=== PATIENT | male | born 1965 | race Caucasian/White ===

== ENCOUNTER 2020-08-07 13:29 | Outpatient (REF) | payer OTHER, SELFPAY ==
[2020-08-07 16:34] LABS: MANUAL DIFF FLAG NO
[2020-08-07 16:39] LABS: Basophils Percent Auto 0.7 % (0-2); Eosinophils Absolute Auto 0.1 X10*3/uL (0.0-0.4); Eosinophils Percent Auto 2.2 % (0-4); Hematocrit 42.7 % (42-52); Hemoglobin 14.5 g/dl (14.0-18.0); Imm Gran Abs Auto 0.01 X10*3/uL (0.00-0.03); Imm Gran Pct Auto 0.2 % (0.0-0.4); Lymphocytes Absolute Auto 1.3 X10*3/uL (1.2-4.9); Lymphocytes Percent Auto 28.4 % (20-40); Mean Corpuscular Hemoglobin 29.7 pg (27.0-33.0); Mean Corpuscular Volume 87.5 fL (80-98); Mean Platelet Volume 11.1 fL (9.4-12.4); Monocytes Absolute Auto 0.5 X10*3/uL (0.1-1.2); Monocytes Percent Auto 10.7 % (2-11); Neutrophils Absolute Auto 2.6 X10*3/uL (2.0-8.3); Neutrophils Percent Auto 57.8 % (45-73); Platelet Count 224 X10*3/uL (160-400); Red Blood Count 4.88 X10*6/uL (4.60-5.80); Red Cell Distribution Width 12.3 % (11.0-16.0); White Blood Count 4.5 X10*3/uL (4.8-10.8)
[2020-08-07 16:50] LABS: Glucose Urine UA NEG (NEG); Leukocyte Esterase Urine NEG (NEG); Nitrite Urine NEG (NEG); PH 6.5 (5.0-8.0); Specific Gravity - Urine 1.015 (1.005-1.025); Urine Blood TRACE (NEG); Urine Ketones NEG (NEG); Urine Protein NEG (NEG-TRACE)
[2020-08-07 16:54] LABS: Alanine Aminotransferase 20 U/L (0-40); Alkaline Phosphatase 62 U/L (39-117); Anion Gap 12 (12-20); Aspartate Amino Transferase 15 U/L (5-37); Bilirubin Total 1.3 mg/dL (0.0-1.0); Blood Urea Nitrogen 18 mg/dL (9-16); Calcium 8.7 mg/dL (8.4-10.2); Carbon Dioxide 28 mmol/L (22-29); Chloride 102 mmol/L (96-108); Cholesterol 204 mg/dL; Estimated Glomerular Filt Rate > 60; Glucose Fasting 80 mg/dL (60-99); HDL Cholesterol 42 mg/dL; LDL Cholesterol Calculated 143 mg/dl; Sodium 138 mmol/L (135-145); Total Protein 6.9 g/dL (6.5-8.0); Triglycerides 95 mg/dL
[2020-08-07 16:57] LABS: Appearance Urine CLEAR; Color Urine YELLOW
[2020-08-07 17:08] LABS: WBC Urine 0 /HPF (0-4)
[2020-08-07 17:15] LABS: Thyroid Stimulating Hormone 0.71 uIU/mL (0.32-4.0)
[2020-08-09 10:37] LABS: Calcium (PTHI) 8.7 mg/dL (8.6-10.3); PTHI 65 pg/mL (14-64)
== END 2020-08-07 13:30 | disposition home or self-care (01) ==
LOC: HO.HMGCLDS 13:29
PROVIDERS: PCP Internal Medicine; Visit Provider Internal Medicine
DX: I10 Essential (primary) hypertension (principal); E78.00 Pure hypercholesterolemia, unspecified; E89.2 Postprocedural hypoparathyroidism; Z12.5 Encounter for screening for malignant neoplasm of prostate
CPT/HCPCS: 36415; 80053; 80061; 81001; 82306; 83970; 84153; 84443; 85025

== ENCOUNTER 2021-01-22 10:44 | Outpatient (REF) | payer OTHER, SELFPAY ==
[2021-01-22 13:43] LABS: MANUAL DIFF FLAG NO
[2021-01-22 13:53] LABS: Basophils Percent Auto 0.8 % (0-2); Eosinophils Absolute Auto 0.1 X10*3/uL (0.0-0.4); Eosinophils Percent Auto 1.9 % (0-4); Hematocrit 45.2 % (42-52); Hemoglobin 15.4 g/dl (14.0-18.0); Imm Gran Abs Auto 0.01 X10*3/uL (0.00-0.03); Imm Gran Pct Auto 0.2 % (0.0-0.4); Lymphocytes Absolute Auto 1.1 X10*3/uL (1.2-4.9); Lymphocytes Percent Auto 22.6 % (20-40); Mean Corpuscular HGB Conc 34.1 g/dl (31.0-36.0); Mean Corpuscular Hemoglobin 29.4 pg (27.0-33.0); Mean Corpuscular Volume 86.4 fL (80-98); Mean Platelet Volume 10.6 fL (9.4-12.4); Monocytes Absolute Auto 0.5 X10*3/uL (0.1-1.2); Monocytes Percent Auto 11.1 % (2-11); Neutrophils Absolute Auto 3.1 X10*3/uL (2.0-8.3); Neutrophils Percent Auto 63.4 % (45-73); Platelet Count 232 X10*3/uL (160-400); Red Blood Count 5.23 X10*6/uL (4.60-5.80); Red Cell Distribution Width 12.1 % (11.0-16.0); White Blood Count 4.9 X10*3/uL (4.8-10.8)
[2021-01-22 14:37] LABS: Alanine Aminotransferase 22 U/L (0-40); Albumin Level 4.5 g/dL (3.5-5.0); Alkaline Phosphatase 65 U/L (39-117); Anion Gap 13 (12-20); Aspartate Amino Transferase 16 U/L (5-37); Bilirubin Total 1.5 mg/dL (0.0-1.0); Blood Urea Nitrogen 20 mg/dL (9-16); Calcium 9.7 mg/dL (8.4-10.2); Carbon Dioxide 28 mmol/L (22-29); Chloride 101 mmol/L (96-108); Estimated Glomerular Filt Rate > 60; Glucose Random 102 mg/dL (60-115); Potassium 3.7 mmol/L (3.3-5.1); Sodium 138 mmol/L (135-145); Total Protein 7.6 g/dL (6.5-8.0)
[2021-01-22 14:44] LABS: TSH reflex Free T4 0.83 uIU/mL (0.32-4.0)
[2021-01-24 17:51] LABS: Calcium (PTHI) 9.7 mg/dL (8.6-10.3); PTHI 48 pg/mL (14-64)
== END 2021-01-22 10:45 | disposition home or self-care (01) ==
LOC: HO.HMGCLDS 10:44
PROVIDERS: PCP Internal Medicine; Visit Provider Internal Medicine
DX: Z00.00 Encounter for general adult medical examination without abnormal findings (principal); F32.2 Major depressive disorder, single episode, severe without psychotic features; F41.1 Generalized anxiety disorder; I10 Essential (primary) hypertension; E78.00 Pure hypercholesterolemia, unspecified; E89.2 Postprocedural hypoparathyroidism
CPT/HCPCS: 36415; 80053; 83970; 84443; 85025

== ENCOUNTER 2021-02-06 20:02 | Emergency (ER) | payer OTHER, SELFPAY ==
--- NOTE | ~2021-02-06 | CT_ITS ---
EXAMINATION: CT ANGIOGRAM OF THE CHEST WITH AND WITHOUT CONTRAST (CT PULMONARY ANGIOGRAM FOR PE) CLINICAL INFORMATION: Reason for Exam Left pleuritic chest pain, tachycardia, rule out DVT COMPARISON: None TECHNIQUE: Prior to contrast administration, noncontrast localization images were obtained. Subsequently, multidetector volumetric imaging was performed from the thoracic inlet to below the diaphragms following the administration of 80 mL Omnipaque 350 intravenous contrast. No contrast reaction reported Sagittal, coronal, and MIP oblique sagittal reformatted images were obtained on the CT workstation, uploaded to PACS, and reviewed. This CT examination was performed using dose optimization techniques as appropriate, variously including the following: *Automated exposure control *Adjustment of mA and/or kV according to patient size (this includes techniques or standardized protocols for targeted exams where dose is matched to indication/reason for exam; i.e. extremities or head) *Use of iterative reconstruction technique Total exam dose-length product 325 mGy-cm FINDINGS: QUALITY OF STUDY/CONTRAST BOLUS: Satisfactory. PULMONARY ARTERIES: No central or segmental pulmonary emboli. THORACIC AORTA: No aneurysm or dissection. LUNG: The central airways are patent. Patchy opacities are seen at both lower lungs involving the lower lobes, lingula, and right middle lobe. PLEURA: No pleural effusion or pneumothorax. MEDIASTINUM: Normal heart size. No pericardial effusion. No hilar or mediastinal lymphadenopathy. No evidence of septal bowing or right heart strain. CHEST WALL/AXILLA: No axillary or internal mammary lymphadenopathy. OSSEOUS STRUCTURES: No acute or suspicious osseous abnormality. Mild degenerative changes in the spine. UPPER ABDOMEN: Unremarkable. No reflux of contrast into the hepatic veins to suggest elevated right heart pressures. CT/CT angio chest PE protocol IMPRESSION: No pulmonary embolism. Patchy bilateral airspace opacities at the lower lungs could be infectious or inflammatory. Atelectasis possible. VTE: negative
--- NOTE | ~2021-02-06 | XR_ITS ---
EXAMINATION: PORTABLE CHEST 1 VIEW CLINICAL INFORMATION: CP . COMPARISON: No recent pertinent prior studies are available for comparison. TECHNIQUE: Portable frontal view of the chest was obtained. FINDINGS: Lungs are hypoexpanded with linear bibasilar markings more likely due to atelectasis. No overt edema or pneumothorax. Tiny right effusion cannot be excluded. Cardiac silhouette within normal limits for size. No acute bony abnormality. XR/XR chest 1V IMPRESSION: Hypoexpanded with linear basilar markings more likely due to atelectasis
[2021-02-06 20:32] VITALS: BP 145/94; PULSE 119; RESP 18; TEMP 37.2; O2SAT 92; BMI 30.7
--- NOTE | 2021-02-06 20:37 | ECG_ITS ---
Test Reason : CHEST PAIN Blood Pressure : / mmHG Vent. Rate : 112 BPM Atrial Rate : 112 BPM P-R Int : 126 ms QRS Dur : 092 ms QT Int : 342 ms P-R-T Axes : 028 -23 028 degrees QTc Int : 466 ms Sinus tachycardia Possible Left atrial enlargement Left ventricular hypertrophy Abnormal ECG No previous ECGs available Referred By: Generic ED Physician Electronically Signed By:RENITA OROZCO
[2021-02-06 21:04] LABS: MANUAL DIFF FLAG NO
[2021-02-06 21:06] LABS: Basophils Percent Auto 0.3 % (0-2); Eosinophils Absolute Auto 0.1 X10*3/uL (0.0-0.4); Eosinophils Percent Auto 0.6 % (0-4); Hematocrit 43.4 % (42-52); Hemoglobin 15.7 g/dl (14.0-18.0); Imm Gran Abs Auto 0.03 X10*3/uL (0.00-0.03); Imm Gran Pct Auto 0.3 % (0.0-0.4); Lymphocytes Absolute Auto 1.5 X10*3/uL (1.2-4.9); Lymphocytes Percent Auto 13.8 % (20-40); Mean Corpuscular HGB Conc 36.2 g/dl (31.0-36.0); Mean Corpuscular Hemoglobin 30.4 pg (27.0-33.0); Mean Corpuscular Volume 84.1 fL (80-98); Mean Platelet Volume 10.7 fL (9.4-12.4); Monocytes Absolute Auto 1.2 X10*3/uL (0.1-1.2); Monocytes Percent Auto 11.6 % (2-11); Neutrophils Absolute Auto 7.8 X10*3/uL (2.0-8.3); Neutrophils Percent Auto 73.4 % (45-73); Platelet Count 204 X10*3/uL (160-400); Red Blood Count 5.16 X10*6/uL (4.60-5.80); Red Cell Distribution Width 12.1 % (11.0-16.0); White Blood Count 10.6 X10*3/uL (4.8-10.8)
[2021-02-06 21:11] LABS: Prothrombin Time 11.2 SEC (9.9-13.0)
[2021-02-06 21:41] LABS: Anion Gap 16 (12-20); Blood Urea Nitrogen 21 mg/dL (9-16); Calcium 9.7 mg/dL (8.4-10.2); Carbon Dioxide 24 mmol/L (22-29); Chloride 100 mmol/L (96-108); Creatinine Clr Calc Pharmacy 81.7; Estimated Glomerular Filt Rate > 60; Glucose Random 105 mg/dL (60-115); Potassium 3.4 mmol/L (3.3-5.1); Sodium 137 mmol/L (135-145)
[2021-02-06 21:47] LABS: Troponin-I High Sensitivity 13.3 ng/L (<3.5-35.0)
[2021-02-06 22:00] VITALS: BP 147/92; PULSE 108; RESP 20; O2SAT 92
[2021-02-07 00:42] LABS: COVID-19 Test Negative (Negative)
--- NOTE | 2021-02-07 01:38 | ED_ITS ---
HPI - Chest Pain General Chief Complaint: Chest Pain Stated Complaint: cp Time Seen by Provider: 02/07/21 01:15 Source: patient Mode of arrival: ambulatory Limitations: no limitations History of Present Illness HPI narrative: 55-year-old man who presents emergency department for evaluation of left-sided pleuritic chest pain shortness of breath and dyspnea on exertion. Patient states that yesterday at around 4:00 p.m. had a sudden onset of left- sided chest pain. He states that there is a constant dull pain but there is a sharp pain which is worse with breathing. The dull pain is 5/10 sharp pain is 9/10. Patient states that he is feeling short of breath and has dyspnea on exertion. States that he has the symptoms all the time but they are worse in the last 2 days. He states that today he began to develop left shoulder pain which is constant, dull and mild to moderate intensity. He also states that he is feeling lightheaded and dizzy. Patient states that he has chronic fatigue and is always tired and this is unchanged from his baseline. Patient denies any pain or swelling in his lower extremities. He denies any recent travel. He does not think that there is any family history of blood clots. He did not take any medications at home for the pain. Related Data Previous Rx's Medication Instructions Recorded azithromycin 250 mg tablet See Rx Instructions .ROUTE 02/07/21 (Zithromax Z-Jonathon) .COMPLEX #6 tab cefuroxime axetil 500 mg tablet 500 mg PO Q12H 10 Days #20 tab 02/07/21 Allergies Allergy/AdvReac Type Severity Reaction Status Date / Time No Known Allergies Allergy Verified 02/06/21 20:37 Review of Systems Review of Systems: Yes all other systems are reviewed and are negative [facility] Past Medical History [facility] Narrative: Past medical history: Hypertension. Past surgical history: None. Social history: Patient denies tobacco use. He states that he drinks 10 beers per week. Denies drug use. Medical History (Updated 02/07/21 @ 04:40 by Wally Rios MD) Hypertension Social History Social History Advance Directives: No Advance Directives Information Provided: No Physical Exam Vital Signs: Vital Signs: Last Vital Signs Temp 98.8 F 02/07/21 02:00 Pulse 90 02/07/21 03:26 Resp 20 02/07/21 03:26 BP 125/78 02/07/21 03:26 Pulse Ox 93 02/07/21 03:26 Body Mass Index 30.7 Const: General: cooperative and no acute distress Orientation/conscio usness: oriented to person and oriented to place Limitations: no limitations HENMT: Head: Yes normal to inspection, Yes normocephalic and Yes atraumatic Ears: external ears normal General nose exam: Normal external nose present Face and sinus: Yes normal facial exam Mouth: Normal oral and palatal mucosa present Throat: Yes posterior oropharynx normal Eyes: General: appearance normal, both eyes and all related structures Pupils: Equal, round and reactive pupils present Neck: Neck: Yes normal visual inspection, Yes no lymphadenopathy, Yes trachea midline and Yes supple Chest: Chest palpation & inspection: normal inspection of the chest and tenderness ([id number], left lateral chest, no lesions noted in this area) Resp: Effort & Inspection: normal respiratory effort and able to speak in complete sentences Auscultation: clear to auscultation bilaterally Cardio: Rate: regular rate Rhythm: regular rhythm Heart sounds: S1 normal heart sound present, S2 normal heart sound present and Murmur heart sound present systolic III/ and at the left sternal border GI: Inspection: Yes normal to inspection Palpation (GI): Soft to palpation, nontender and no guarding Auscultation: normal bowel sounds : General: Yes no CVA tenderness Back/Spine/Pelvis: Back: no CVA tenderness Skin: General skin exam: no rashes or lesions noted Neuro: General: oriented to person and oriented to place Cranial nerves: Yes CN's II-XII intact bilaterally and Yes Equal, round and reactive pupils present Cognition (Neuro): normal cognition Motor exam (neuro): 5/5 motor strength present throughout Extrem: General: Yes normal to inspection Psych: Appearance: grossly normal Speech and movement: Normal speech and movement present Affect: normal affect Attitude: cooperative Thought process: Normal thought process present Thought content: Normal thought co ntent present Course Course Course Narrative: 55-year-old male who presents emergency department for evaluation of sudden onset of left-sided pleuritic chest pain that occurred yesterday at 4:00 p.m.. The pain is been constant and he states that today at around 3:00 p.m. he developed left shoulder pain. He is also complaining of shortness of breath and dyspnea on exertion which is above his baseline. The patient has no significant risk factors for pulmonary embolism. Vital signs revealed tachycardia with a pulse of 119, elevated blood pressure of 149/94, O2 saturation was slightly low at 92% on room air. His physical examination did reveal left-sided chest wall tenderness and a 3/6 systolic murmur best heard at the left sternal border which he was not aware of. The patient's laboratory evaluation did reveal detectable high sensitive troponin the 13.3. Twelve EKG revealed a sinus tachycardia. The patient will have a repeat troponin, , CT scan pulmonary angiogram PE protocol will be obtained as well. Patient's pain was treated with Toradol 30 mg IV. He is also given normal saline IV x1 L. 0427: The patient did not get any improvement with the Toradol therefore was given morphine 4 mg IV with improvement his pain. CT scan of the patient's chest pulmonary embolism protocol was interpreted by the radiologist as ?No pulmonary embolism.Patchy bilateral airspace opacities at the lower lungs could be infectious or inflammatory. Atelectasis possible . Repeat troponin was not significantly elevated at 17.6. The patient will be treated for possible pneumonia. He will be started on Zithromax Z-Jonathon and Ceftin. I did discuss these findings with the patient. The patient was discharged home. The patient was given verbal and printed instructions prior to discharge. The patient was advised to follow-up with his PCP in 2 days and to return to the emergency department if his symptoms get worse or if he develops any new symptoms that are concerning to him. ?Also, of note, the patient does have a heart murmur which I do not think is related to his symptoms. I told the patient that he is to follow-up with his PCP and get an echocardiogram as an outpatient may also need to follow-up with cardiology. MDM - Chest Pain Lab Data Result diagrams: 02/06/21 20:58 02/06/21 20:58 Labs: Lab Results 02/06/21 02/06/21 02/06/21 Range/Units 20:58 20:58 20:58 WBC 10.6 (4.8-10.8) X10*3/uL RBC 5.16 (4.60-5.80) X10*6/uL Hgb 15.7 (14.0-18.0) g/dl Hct 43.4 (42-52) % MCV 84.1 (80-98) fL MCH 30.4 (27.0-33.0) pg MCHC 36.2 H (31.0-36.0) g/dl RDW 12.1 (11.0-16.0) % Plt Count 204 (160-400) X10*3/uL MPV 10.7 (9.4-12.4) fL Immature Gran % (Auto) 0.3 (0.0-0.4) % Neut % (Auto) 73.4 H (45-73) % Lymph % (Auto) 13.8 L (20-40) % [place] % (Auto) 11.6 H (2-11) % Eos % (Auto) 0.6 (0-4) % Baso % (Auto) 0.3 (0-2) % Lymph # (Auto) 1.5 (1.2-4.9) X10*3/uL [place] # (Auto) 1.2 (0.1-1.2) X10*3/uL Eos # (Auto) 0.1 (0.0-0.4) X10*3/uL Baso # (Auto) 0.0 (0.0-0.2) X10*3/uL Abs Immat Gran (auto) 0.03 (0.00-0.03) X10*3/uL Absolute Neuts (auto) 7.8 (2.0-8.3) X10*3/uL Absolute Nucleated RBC 0.000 (0.0-0.012) X10*3/uL Nucleated RBC % (auto) 0.0 (0.0-0.2) /100WBC PT 11.2 (9.9-13.0) SEC INR 1.0 (0.9-1.1) APTT (24.1-38.0) SEC D-Dimer < 200 NG/ML Sodium 137 (135-145) mmol/L Potassium 3.4 (3.3-5.1) mmol/L Chloride 100 (96-108) mmol/L Carbon Dioxide 24 (22-29) mmol/L Anion Gap 16 (12-20) BUN 21 H (9-16) mg/dL Creatinine 1.03 (0.5-1.4) mg/dL Estim Creat Clear Calc 81.7 Estimated GFR > 60 Random Glucose 105 (60-115) mg/dL Calcium 9.7 (8.4-10.2) mg/dL Magnesium 2.0 (1.6-2.6) mg/dL Troponin I High Sens (<3.5-35.0) ng/L Urine Color Urine Appearance Urine pH (5.0-8.0) Ur Specific Curlew (1.005-1.025) Urine Protein (NEG-TRACE) MG/DL Urine Glucose (UA) (NEG) MG/DL Urine Ketones (NEG) MG/DL Urine Blood (NEG) Urine Nitrite (NEG) Ur Leukocyte Esterase (NEG) Urine RBC (0) /HPF Urine WBC (0-4) /HPF Ur Squamous Epith Cells /LPF Urine Bacteria /LPF Hyaline Casts /LPF Granular Casts /LPF Urine Mucus /LPF COVID-19 (AMBIKA) (Negative) COVID-19 Clin Com 02/06/21 02/07/21 02/07/21 Range/Units 20:58 00:24 02:17 WBC (4.8-10.8) X10*3/uL RBC (4.60-5.80) X10*6/uL Hgb (14.0-18.0) g/dl Hct (42-52) % MCV (80-98) fL MCH (27.0-33.0) pg MCHC (31.0-36.0) g/dl RDW (11.0-16.0) % Plt Count (160-400) X10*3/uL MPV (9.4-12.4) fL Immature Gran % (Auto) (0.0-0.4) % Neut % (Auto) (45-73) % Lymph % (Auto) (20-40) % [place] % (Auto) (2-11) % Eos % (Auto) (0-4) % Baso % (Auto) (0-2) % Lymph # (Auto) (1.2-4.9) X10*3/uL [place] # (Auto) (0.1-1.2) X10*3/uL Eos # (Auto) (0.0-0.4) X10*3/uL Baso # (Auto) (0.0-0.2) X10*3/uL Abs Immat Gran (auto) (0.00-0.03) X10*3/uL Absolute Neuts (auto) (2.0-8.3) X10*3/uL Absolute Nucleated RBC (0.0-0.012) X10*3/uL Nucleated RBC % (auto) (0.0-0.2) /100WBC PT (9.9-13.0) SEC INR (0.9-1.1) APTT (24.1-38.0) SEC D-Dimer NG/ML Sodium (135-145) mmol/L Potassium (3.3-5.1) mmol/L Chloride (96-108) mmol/L Carbon Dioxide (22-29) mmol/L Anion Gap (12-20) BUN (9-16) mg/dL Creatinine (0.5-1.4) mg/dL Estim Creat Clear Calc Estimated GFR Random Glucose (60-115) mg/dL Calcium (8.4-10.2) mg/dL Magnesium (1.6-2.6) mg/dL Troponin I High Sens 13.3 17.6 (<3.5-35.0) ng/L Urine Color Urine Appearance Urine pH (5.0-8.0) Ur Specific [place]lew (1.005-1.025) Urine Protein (NEG-TRACE) MG/DL Urine Glucose (UA) (NEG) MG/DL Urine Ketones (NEG) MG/DL Urine Blood (NEG) Urine Nitrite (NEG) Ur Leukocyte Esterase (NEG) Urine RBC (0) /HPF Urine WBC (0-4) /HPF Ur Squamous Epith Cells /LPF Urine Bacteria /LPF Hyaline Casts /LPF Granular Casts /LPF Urine Mucus /LPF COVID-19 (AMBIKA) Negative (Negative) COVID-19 Clin Com See Note 02/07/21 02/07/21 Range/Units 02:17 03:32 WBC (4.8-10.8) X10*3/uL RBC (4.60-5.80) X10*6/uL Hgb (14.0-18.0) g/dl Hct (42-52) % MCV (80-98) fL MCH (27.0-33.0) pg MCHC (31.0-36.0) g/dl RDW (11.0-16.0) % Plt Count (160-400) X10*3/uL MPV (9.4-12.4) fL Immature Gran % (Auto) (0.0-0.4) % Neut % (Auto) (45-73) % Lymph % (Auto) (20-40) % [place] % (Auto) (2-11) % Eos % (Auto) (0-4) % Baso % (Auto) (0-2) % Lymph # (Auto) (1.2-4.9) X10*3/uL [place] # (Auto) (0.1-1.2) X10*3/uL Eos # (Auto) (0.0-0.4) X10*3/uL Baso # (Auto) (0.0-0.2) X10*3/uL Abs Immat Gran (auto) (0.00-0.03) X10*3/uL Absolute Neuts (auto) (2.0-8.3) X10*3/uL Absolute Nucleated RBC (0.0-0.012) X10*3/uL Nucleated RBC % (auto) (0.0-0.2) /100WBC PT 11.8 (9.9-13.0) SEC INR 1.0 (0.9-1.1) APTT 35.1 (24.1-38.0) SEC D-Dimer NG/ML Sodium (135-145) mmol/L Potassium (3.3-5.1) mmol/L Chloride (96-108) mmol/L Carbon Dioxide (22-29) mmol/L Anion Gap (12-20) BUN (9-16) mg/dL Creatinine (0.5-1.4) mg/dL Estim Creat Clear Calc Estimated GFR Random Glucose (60-115) mg/dL Calcium (8.4-10.2) mg/dL Magnesium (1.6-2.6) mg/dL Troponin I High Sens (<3.5-35.0) ng/L Urine Color YELLOW Urine Appearance HAZY Urine pH 6.0 (5.0-8.0) Ur Specific [place] >= 1.030 H (1.005-1.025) Urine Protein NEG (NEG-TRACE) MG/DL Urine Glucose (UA) NEG (NEG) MG/DL Urine Ketones NEG (NEG) MG/DL Urine Blood 3+ H (NEG) Urine Nitrite NEG (NEG) Ur Leukocyte Esterase NEG (NEG) Urine RBC 10-14 H (0) /HPF Urine WBC 1-4 (0-4) /HPF Ur Squamous Epith Cells 1+ /LPF Urine Bacteria 2+ /LPF Hyaline Casts 0-2 /LPF Granular Casts 0-2 /LPF Urine Mucus 2+ /LPF COVID-19 (AMBIKA) (Negative) COVID-19 Clin Com Discharge Plan Discharge Clinical Impression: Pleuritic chest pain, Pneumonia, Heart murmur Patient Disposition: Home, Self-Care Instructions: Pneumonia (ED), Heart Murmur (ED) Additional Instructions: Your chest x-ray was unremarkable however the CT scan of your chest revealed bilateral lower lobe pneumonia. There was no evidence for a blood clot in your lungs which is reassuring. Pneumonia can cause pleuritic chest pain which is pain that is worse with breathing. I am starting you on 2 antibiotics. Take Zithromax Z-Jonathon as prescribed. Take your next dose tomorrow morning since you are given a dose this morning in the emergency department. Take Ceftin (cefuroxime) 500 mg pills, 1 pill twice a day for 7 days. Take your next dose tomorrow morning since your given your 1st dose here in the emergency department. Take ibuprofen 200 mg pills, 3 pills every 6 hours as needed for pain. Take Tylenol (acetaminophen) 500 mg pills, 2 pills every 4 to 6 hours as needed for pain. You have a heart murmur, I suspect that this may be related to your mitral valve but you need to get an echocardiogram as an outpatient to determine the significance of this heart murmur. Follow-up with your doctor in 2 days. Please return to the emergency department if your symptoms get worse or if you develop any symptoms that are concerning to you. Prescriptions: New azithromycin [Zithromax Z-Jonathon] 250 mg tablet See Rx Instructions .ROUTE .COMPLEX Qty: 6 RF: 0 cefuroxime axetil 500 mg tablet 500 mg PO Q12H 10 Days Qty: 20 RF: 0 Stand Alone Forms: Work/School Release
[2021-02-07 01:46] LABS: D Dimer < 200 NG/ML
[2021-02-07 02:00] VITALS: BP 131/84; PULSE 112; RESP 20; TEMP 37.1; O2SAT 94
[2021-02-07] MEDS: Ketorolac Tromethamine 15 MG/ML VIAL 30 MG IVPUSH (02:25)
[2021-02-07] MEDS: 0.9 % Sodium Chloride 1,000 ML 999 ML IV (02:26)
[2021-02-07 02:34] LABS: Partial Thromboplastin Time 35.1 SEC (24.1-38.0)
[2021-02-07 02:48] LABS: Troponin-I High Sensitivity 17.6 ng/L (<3.5-35.0)
[2021-02-07 02:50] VITALS: RESP 22
[2021-02-07] MEDS: Morphine Sulfate 4 MG/ML CARTRIDGE IVPUSH (02:50)
[2021-02-07] MEDS: ondansetron HCL 4 MG/2 ML VIAL IVPUSH (02:50)
--- NOTE | 2021-02-07 03:05 | PC.NURSE ---
Pt aaox4, resting in recliner chair in NAD at this time, RR even and unlabored on RA. Pt's VSS; pt is slightly tachycardiac at 103 at this time. Pt denies pain at this time, reports that stuff is amazing referencing morphine. Pt states I could get up and go running, I feel great. I guess I'm good to go home now. This RN explains to pt that he is not able to go home at this time because the ED provider is awaiting test results in attempts to identify the cause of pt's pain. Pt expresses understanding. Pt offers no questions. Pt to ED CT at this time.
[2021-02-07] MEDS: iohexoL 350 MG/ML 100 ML INFUS..BTL 65 ML IV (03:23)
[2021-02-07 03:26] VITALS: BP 125/78; PULSE 90; RESP 20; O2SAT 93
[2021-02-07 03:38] LABS: Glucose Urine UA NEG (NEG); Leukocyte Esterase Urine NEG (NEG); Nitrite Urine NEG (NEG); Specific Gravity - Urine >= 1.030 (1.005-1.025); UACC Culture Trigger NO; Urine Blood 3+ (NEG); Urine Ketones NEG (NEG); Urine Protein NEG (NEG-TRACE)
[2021-02-07 03:39] LABS: Prothrombin Time 11.8 SEC (9.9-13.0)
[2021-02-07 03:44] LABS: Appearance Urine HAZY; Color Urine YELLOW
[2021-02-07 03:45] LABS: Bacteria Urine 2+ /LPF; Granular Casts Urine 0-2 /LPF; Hyaline Casts Urine 0-2 /LPF; Mucus Urine 2+ /LPF; Squamous Epithelial Cell Urine 1+ /LPF
[2021-02-07] MEDS: Azithromycin 500 MG TABLET PO (04:46)
== END 2021-02-07 05:09 | disposition home or self-care (01) ==
PROVIDERS: Emergency Provider Emergency Medicine Emergency Medical Services; PCP Internal Medicine
DX: R07.89 Other chest pain (principal); J18.9 Pneumonia, unspecified organism; R01.1 Cardiac murmur, unspecified; R00.0 Tachycardia, unspecified; I10 Essential (primary) hypertension; R06.02 Shortness of breath; Z20.822 Contact with and (suspected) exposure to COVID-19
CPT/HCPCS: 36415; 71045; 71275; 80048; 81001; 83735; 84484; 85025; 85379; 85610; 85730; 87635; 93005; 96361; 96374; 96375; 99284; J1885; J2270; J2405; Q9967

== ENCOUNTER → 2021-03-19 07:26 | Outpatient (REF) | payer OTHER, SELFPAY ==
--- NOTE | 2021-03-19 07:32 | CA_ITS ---
Transthoracic Echocardiogram Patient (Last, First, Middle): Ronen Evans D Gender: Male Date of : 1965 Age: 55 Procedure Date: 03/19/2021 Procedure Type: Transthoracic Echocardiogram Location: OP Height: 165.1 cm Weight: 84.82 kg BSA: 1.92 m2 Heart Rate: bpm BP: 126 / 92 mmHg Ab Initio Etl Developer: BRUNO Brown MD: Corona Breen MD DO Symptoms: SYSTOLIC MURMUR Study Quality: Good ECG Rhythm: Sinus bradycardia Conclusions: - The left ventricular systolic function is normal. The visually estimated ejection fraction is between 65-70%. - There is mild calcification of the aortic valve. - No obvious valvular pathology seen on this study. Findings Left Ventricle Normal left ventricular cavity size. There is mildly increased left ventricular wall thickness. The left ventricular systolic function is normal. The visually estimated ejection fraction is between 65-70%. There is no evidence of regional wall motion abnormalities. LV peak GLS -16% (normal). Right Ventricle Normal right ventricular cavity size and systolic function. Atria Both atria are normal in size. Aortic Valve There is a normal trileaflet aortic valve. There is mild calcification of the aortic valve. There is no aortic valve stenosis. There is no aortic valve regurgitation. Mitral Valve The mitral valve appears normal. There is trace mitral valve regurgitation. There is no mitral valve stenosis. Pulmonic Valve The pulmonic valve was not well visualized. Tricuspid Valve Normal tricuspid valve structure. There is trace tricuspid valve regurgitation. The pulmonary artery systolic pressure is normal. Great Vessels The aortic annulus, sinuses of valsalva, and asc aorta are normal in size. Venous The inferior vena cava is normal in size and collapses greater than 50% with inspiration. Pericardium/Pleural There is no evidence of pericardial effusion. Prior Study Comparison No prior study available for comparison. Recommendations, Care & Conclusions No obvious valvular pathology seen on this study. Measurements 2D Linear Measurements IVSd: 1.17 0.6-0.9/0.6-1.0 cm LVIDd: 4.11 3.9-5.3/4.2-5.9 cm LVIDd Index: 2.14 2.4-3.2/2.2-3.1 cm/m2 LVIDs: 2.72 2.0-3.6 cm LVPWd: 1.10 0.7-1.1 cm Ao Root: 3.70 2.1-3.5 cm LA Diam: 4.10 2.7-3.8/3.0-4.0 cm LAIDs Index: 2.14 1.5-2.3 cm/m2 LV Mass: 197.88 67-162/88-224 g LV Mass Index: 103.06 43-95/49-115 g/m2 LVOT Diam: 2.20 3.0+(-)1.3 cm 2D Systolic Function EF 4C: 57.40 >55% EF 2C: 61.20 >55% EF BiP: 60.20 >55% Mitral Valve MV Pk E: 0.71 MV PK A: 0.69 MV Decel Time: 392.00 E/A: 1.00 E'Lateral: 7.18 E'Medial: 6.64 E/E' Med: 10.60 E/E' Lat: 9.80 PHT: 115.00 MVA PHT: 1.91 Decel Custer: 1.80 Aortic Valve AoV Pk Joseph: 1.48 AoV Mn Joseph: 1.14 AoV VTI: 0.33 AoV Pk Grad: 9.00 Aov Mn Grad: 6.00 LORI Cont.VTI: 4.01 LVOT LVOT Pk Joseph: 1.55 LVOT Mn Joseph: 1.16 LVOT VTI: 0.35 LVOT Pk Grad: 10.00 LVOT Mn Grad: 6.00 LVOT Diam: 2.20 LVOT Area: 3.80 Diastolic Function MV Pk E: 0.71 MV Pk A: 0.69 E/A: 1.00 E'Medial: 6.64 E/E' Med: 10.60 E' Laterial: 7.18 E/E' Lat: 9.80 Right Ventricle TAPSE (mm): 2.22 TVS' Joseph: 13.20 Tricuspid Valve TR Pk Joseph: 2.01 TR Pk Grad: 16.00 RA Press: 3.00 RVSP: 19.00 Great Vessels Aorta Ao Root-2D: 3.70 2.0-3.7 cm Ao Asc: 3.40 2.1-3.4 cm Ao Arch: 2.90 Updated in Other Vendor System with Status of Final Douglas Turner MD electronically signed on 03/19/2021 12:32:07 PM with status of Final
== END ==
LOC: HO.CARD 07:26
PROVIDERS: Visit Provider Internal Medicine
DX: R01.1 Cardiac murmur, unspecified (principal)
CPT/HCPCS: 93306; 93356

== ENCOUNTER 2022-03-31 16:36 | Emergency (ER) | payer OTHER, SELFPAY ==
--- NOTE | ~2022-03-31 | XR_ITS ---
EXAMINATION: XR HAND, LEFT CLINICAL INFORMATION: Laceration COMPARISON: None TECHNIQUE: PA, lateral, and oblique views of the left hand. FINDINGS: Soft tissue disruption in the distal third digit. No underlying fracture or bony violation. XR/XR hand LT 2V IMPRESSION: Soft tissue disruption distal third digit. No underlying bony finding.
[2022-03-31 16:41] VITALS: BP 161/98; PULSE 90; RESP 20; TEMP 37.1; O2SAT 98; BMI 30.7
--- NOTE | 2022-03-31 21:39 | ED.WOUNDLAC ---
HPI - Wound/Laceration General Chief Complaint: Wound/Laceration Stated Complaint: middle finger lac. Time Seen by Provider: 03/31/22 21:36 Source: patient Mode of arrival: ambulatory Limitations: no limitations History of Present Illness HPI narrative: 56-year-old male presents for evaluation of lacerations to the 3rd and 4th finger tips of the left hand. Does fingers stuck in a trimmer climber. He applied a dressing however the bleeding has not stopped. He believes his tetanus vaccine is up-to-date. Onset (ago): hour(s) (Within the hour of arrival) Extremity Location: left: hand (Third and 4th finger tips) Place: home Patient tetanus UTD: No Context: accidental Associated symptoms: pain Treatments prior to arrival: bandage Related Data Previous Rx's Medication Instructions Recorded azithromycin 250 mg tablet See Rx Instructions PO .COMPLEX #6 02/07/21 (Zithromax Z-Jonathon) tabs cefuroxime axetil 500 mg tablet 500 mg PO Q12H 10 days #20 tabs 02/07/21 amoxicillin 875 mg-potassium 1 tab PO Q12H 10 days #20 tabs 03/31/22 clavulanate 125 mg tablet Allergies Allergy/AdvReac Type Severity Reaction Status Date / Time No Known Allergies Allergy Verified 02/06/21 20:37 Review of Systems Review of Systems: Constitutional: No Fever, No Chills ENT/Mouth: No Ear Pain, No Hoarseness, No sore throat Eyes: No Eye Pain, No Swelling, No Redness, No Foreign Body Cardiovascular: No Chest Pain, No SOB Respiratory: No Cough, No Dyspnea Gastrointestinal: No Nausea, No Vomiting, No Diarrhea, No abdominal Pain Genitourinary: No Dysuria, No Hematuria Musculoskeletal: positive left 3rd and 4th finger pain, No Myalgias, No Joint Swelling Skin: 3rd and 4th finger tip lacerations, No rash Neuro: No Weakness, No Numbness, No Paresthesias, No Loss of Consciousness, No Dizziness, No Headache Psych: No Anxiety/Panic, No Depression Heme/Lymph: no easy bruising, no Lymphadenopathy Endocrine: No Polyuria, No Polydipsia Yes all other systems are reviewed and are negative PMFSH Past Medical History Attestation statement: The following information was validated with the patient. Source: old records reviewed Medical History Hypertension Social History Social History Advance Directives: No Advance Directives Information Provided: No Physical Exam Vital Signs: Vital Signs: Last Vital Signs Temp 98.7 F 03/31/22 16:41 Pulse 90 03/31/22 16:41 Resp 20 03/31/22 16:41 BP 161/98 H 03/31/22 16:41 Pulse Ox 98 03/31/22 16:41 O2 Del Method 03/31/22 16:41 BMI result Body Mass Index 30.7 Appearance: Alert. Oriented X3. No acute distress. Eyes: Pupils equal, round and reactive to light. ENT: Pharynx normal. Neck: Normal inspection. Neck supple. CVS: Normal heart rate and rhythm. Pulses normal. Respiratory: No respiratory distress. Breath sounds normal. Abdomen: Soft and nontender. Skin: Skin warm and dry. Normal skin color. Normal skin turgor. Extremities: 3rd and 4th finger tip lacerations. Brisk capillary refill, equal pulses. Neurovascularly intact. No tendon deficit. Full flexion extension of all digits. Neuro: No motor deficit. No sensory deficit. Cranial nerves 2-12 intact. Course Course Course Narrative: 56-year-old male presents for lacerations of the 4th and 3rd fingers of the left hand. Patient has full range of motion, brisk capillary refill, no indication of tendon deficit. X-rays do not indicate any bone involvement. Plan of care is to repair lacerations Prepped and draped in sterile fashion. Irrigated with copious amounts of sterile saline and hydrogen peroxide. Betadine cleanse Please refer to procedure note for full details. 23:12 patient continues with brisk capillary refill, full range of motion, no indication of tendon deficit. Patient does understand that he must follow-up with the hand surgeon. Will give antibiotics, and have patient take Tylenol Motrin as needed for pain management. Patient does understand indications of infection. Patient verbalized understanding of and agrees to plan of care discharge home. MDM - Wound/Laceration Differential Diagnosis Differential diagnosis: Likely laceration Medical Records Attestation: I reviewed the patient's medical records. Imaging Data Finger x-ray: Attestation: I personally reviewed and interpreted this imaging study as follows: Radiologist's impression: EXAMINATION: XR HAND, LEFT CLINICAL INFORMATION: Laceration? COMPARISON: None? TECHNIQUE: PA, lateral, and oblique views of the left hand. FINDINGS: Soft tissue disruption in the distal third digit. No underlying fracture or bony violation.? XR/XR hand LT 2V IMPRESSION: Soft tissue disruption distal third digit. No underlying bony finding. Procedures Laceration Laceration 1: Site: hand Side (If applicable): left (Third finger tip) Size (cm): 2 Description: linear, flap and irregular Depth: involves muscle layer Local Anesthetic: lidocaine 2% Amount of anesthesia used (mL): 2 Pre-repair: wound explored and irrigated extensively Skin layer closed with: nylon Size (cm): 4-0 Number of sutures: 15 Technique: simple, interrupted Laceration 2: Site: hand Side (If applicable): left (Fourth finger tip) Size (cm): 1 Description: linear Depth: simple, single layer Local Anesthetic: lidocaine 2% Amount of anesthesia used (mL): 2 Pre-repair: wound explored, irrigated extensively and deep structures intact Skin layer closed with: nylon Size (cm): 4-0 Number of sutures: 6 Technique: simple, interrupted Discharge Plan Discharge Clinical Impression: Laceration Patient Disposition: Home, Self-Care Instructions: Care For Your Stitches (ED), Finger Laceration (ED) Additional Instructions: You were evaluated for lacerations caused by a trimmer climber. You must follow-up with a hand surgeon. Please follow up with Mariann Anderson. Call and make an appointment. Take Augmentin 875 mg twice a day for the next 10 days. Your sutures should be removed in 10-14 days. Please return for wound check in 3 days. If you notice any signs or symptoms indicating infection please return immediately. Keep splint in place to reduce injury. Thank you for choosing this emergency department for evaluation. Please follow-up with primary care physician as needed. Return to the emergency department for any new, concerning, or worsening symptoms. Prescriptions: New amoxicillin-pot clavulanate 875-125 mg tablet 1 tab PO Q12H 10 Days Qty: 20 0RF No Action azithromycin [Zithromax Z-Jonathon] 250 mg tablet See Rx Instructions .ROUTE .COMPLEX Qty: 6 0RF Rx Instructions: take 500 mg today (day 1), then 250 mg for 4 days (days 2-5) cefuroxime axetil 500 mg tablet 500 mg PO Q12H 10 Days Qty: 20 0RF Referrals: Mariann Manrique MD [Physician] - 2 days (Third and 4th finger tip lacerations) Stand Alone Forms: Work/School Release
[2022-03-31] MEDS: Diphth,Pertus(ACell),Tet Adult 0.5 ML SYRINGE IM (22:03)
[2022-03-31 23:35] VITALS: RESP 16; O2SAT 95
== END 2022-03-31 23:37 | disposition home or self-care (01) ==
PROVIDERS: Emergency Provider Emergency Medicine Emergency Medical Services; PCP Internal Medicine
DX: S61.213A Laceration without foreign body of left middle finger without damage to nail, initial encounter (principal); S61.215A Laceration without foreign body of left ring finger without damage to nail, initial encounter; S60.512A Abrasion of left hand, initial encounter; W29.3XXA Contact with powered garden and outdoor hand tools and machinery, initial encounter; Y93.9 Activity, unspecified; Y92.9 Unspecified place or not applicable; Y99.9 Unspecified external cause status; Z79.899 Other long term (current) drug therapy
CPT/HCPCS: 12042; 73120; 90471; 90715; 99283; 99284

== ENCOUNTER → 2022-04-08 11:11 | Outpatient (BNVA) | payer OTHER, SELFPAY | PROVIDERS: PCP Internal Medicine; Visit Provider Orthopaedic Surgery | DX: S61.213A Laceration without foreign body of left middle finger without damage to nail, initial encounter (principal); S61.215A Laceration without foreign body of left ring finger without damage to nail, initial encounter | CPT/HCPCS: 99202 ==

== ENCOUNTER 2022-04-09 09:37 | Outpatient (REF) | payer OTHER, SELFPAY ==
[2022-04-09 11:28] LABS: MANUAL DIFF FLAG NO
[2022-04-09 11:44] LABS: Basophils Absolute Auto 0.1 X10*3/uL (0.0-0.2); Basophils Percent Auto 1.3 % (0-2); Eosinophils Absolute Auto 0.2 X10*3/uL (0.0-0.4); Eosinophils Percent Auto 3.3 % (0-4); Hematocrit 41.9 % (42.0-52.0); Hemoglobin 14.5 g/dl (14.0-18.0); Imm Gran Abs Auto 0.01 X10*3/uL (0.00-0.03); Imm Gran Pct Auto 0.2 % (0.0-0.4); Lymphocytes Absolute Auto 1.3 X10*3/uL (1.2-4.9); Lymphocytes Percent Auto 29.1 % (20-40); Mean Corpuscular HGB Conc 34.6 g/dl (31.0-36.0); Mean Corpuscular Hemoglobin 29.9 pg (27.0-33.0); Mean Corpuscular Volume 86.4 fL (80.0-98.0); Mean Platelet Volume 10.8 fL (9.4-12.4); Monocytes Absolute Auto 0.5 X10*3/uL (0.1-1.2); Monocytes Percent Auto 10.9 % (2-11); Neutrophils Absolute Auto 2.5 x10*3/uL (2.0-8.3); Neutrophils Percent Auto 55.2 % (45-73); Platelet Count 215 X10*3/uL (160-400); Red Blood Count 4.85 X10*6/uL (4.60-5.80); Red Cell Distribution Width 12.2 % (11.0-16.0); White Blood Count 4.6 X10*3/uL (4.8-10.8)
[2022-04-09 12:11] LABS: Alanine Aminotransferase 21 U/L (0-40); Albumin Level 4.3 g/dL (3.5-5.0); Alkaline Phosphatase 68 U/L (39-117); Anion Gap 14 (12-20); Aspartate Amino Transferase 15 U/L (5-37); Bilirubin Total 0.9 mg/dL (0.0-1.0); Blood Urea Nitrogen 20 mg/dL (9-16); Calcium 9.3 mg/dL (8.4-10.2); Carbon Dioxide 27 mmol/L (22-29); Chloride 105 mmol/L (96-108); Cholesterol 230 mg/dL; Estimated Glomerular Filt Rate > 60; Glucose Fasting 111 mg/dL (60-99); HDL Cholesterol 39 mg/dL; LDL Cholesterol Calculated 165 mg/dl; Potassium 4.5 mmol/L (3.3-5.1); Sodium 141 mmol/L (135-145); Total Protein 7.2 g/dL (6.5-8.0); Triglycerides 133 mg/dL
[2022-04-09 12:18] LABS: PSA,Total (Free>4and<10) 0.81 ng/mL (0.00-4.00); Thyroid Stimulating Hormone 0.83 uIU/mL (0.32-4.0); Vitamin D 25-OH Total 32.3 ng/mL (>30)
[2022-04-09 13:19] LABS: Appearance Urine Turbid; Color Urine Yellow; Glucose Urine UA Negative (Negative); Leukocyte Esterase Urine Negative (Negative); Nitrite Urine Negative (Negative); PH 5.5 (5.0-9.0); Specific Gravity - Urine 1.025 (1.005-1.025); UMIC TRIGGER UA YES; Urine Blood Moderate (2+) (Negative); Urine Ketones Negative (Negative); Urine Protein Negative (Neg-Trace)
[2022-04-09 13:24] LABS: Bacteria Urine None Seen (None Seen); Hyaline Casts Urine 0-2 /LPF (0-2); Squamous Epithelial Cell Urine 0-2 /HPF (0-2); WBC Urine 0-5 /HPF (0-5)
[2022-04-10 11:12] LABS: Calcium (PTHI) 9.2 mg/dL (8.6-10.3); PTHI 68 pg/mL (16-77)
== END 2022-04-09 09:38 | disposition home or self-care (01) ==
LOC: HO.HMGCLDS 09:37
PROVIDERS: PCP Internal Medicine; Visit Provider Internal Medicine
DX: Z00.00 Encounter for general adult medical examination without abnormal findings (principal); Z12.5 Encounter for screening for malignant neoplasm of prostate; I10 Essential (primary) hypertension; E89.2 Postprocedural hypoparathyroidism; E66.09 Other obesity due to excess calories; Z68.32 Body mass index [BMI] 32.0-32.9, adult
CPT/HCPCS: 36415; 80053; 80061; 81001; 82306; 83970; 84153; 84443; 85025

== ENCOUNTER → 2022-04-15 10:23 | Outpatient (BNVA) | payer OTHER, SELFPAY | PROVIDERS: PCP Internal Medicine; Visit Provider Physician Assistant | DX: S61.215A Laceration without foreign body of left ring finger without damage to nail, initial encounter (principal); S61.213A Laceration without foreign body of left middle finger without damage to nail, initial encounter | CPT/HCPCS: 99212 ==

== ENCOUNTER → 2022-04-29 13:10 | Outpatient (BNVA) | payer OTHER, SELFPAY | PROVIDERS: PCP Internal Medicine; Visit Provider Physician Assistant | DX: S61.213A Laceration without foreign body of left middle finger without damage to nail, initial encounter (principal); W26.9XXA Contact with unspecified sharp object(s), initial encounter; Y93.9 Activity, unspecified; Y92.9 Unspecified place or not applicable; Y99.8 Other external cause status | CPT/HCPCS: 99212 ==

== ENCOUNTER 2022-09-02 08:54 | Outpatient (REF) | payer OTHER, SELFPAY ==
[2022-09-02 17:20] LABS: Urine Cytology See Pathology rpt
== END 2022-09-02 08:55 | disposition home or self-care (01) ==
LOC: HO.LAB 08:54
PROVIDERS: PCP Internal Medicine; Visit Provider Nurse Practitioner Family
DX: Z13.9 Encounter for screening, unspecified (principal); R31.29 Other microscopic hematuria; R35.0 Frequency of micturition; R35.1 Nocturia
CPT/HCPCS: 88112; 99202

== ENCOUNTER 2022-09-23 09:47 | Outpatient (REF) | payer OTHER, SELFPAY ==
[2022-09-23 11:07] LABS: Blood Urea Nitrogen 32 mg/dL (9-16); Estimated Glomerular Filt Rate > 60
== END 2022-09-23 09:48 | disposition home or self-care (01) ==
LOC: HO.LAB 09:47
PROVIDERS: PCP Internal Medicine; Visit Provider Nurse Practitioner Family
DX: R31.29 Other microscopic hematuria (principal)
CPT/HCPCS: 36415; 82565; 84520

== ENCOUNTER 2022-09-30 07:53 | Outpatient (REF) | payer OTHER, SELFPAY ==
--- NOTE | ~2022-09-30 | CT_ITS ---
EXAMINATION: CT ABDOMEN AND PELVIS WITHOUT AND WITH CONTRAST CLINICAL INFORMATION: Microscopic hematuria COMPARISON: None available. TECHNIQUE: Noncontrast CT of the abdomen and pelvis is performed followed by split bolus contrast-enhanced images using 85 mL Omnipaque 350 contrast.? Postcontrast imaging is performed during the combined nephrogram and excretion phase. Sagittal and coronal reformatted images were obtained on the technologist's workstation for both the precontrast and postcontrast phases. This CT examination was performed using dose optimization techniques as appropriate, variously including the following: *Automated exposure control *Adjustment of mA and/or kV according to patient size (this includes techniques or standardized protocols for targeted exams where dose is matched to indication/reason for exam; i.e. extremities or head) *Use of iterative reconstruction technique DLP: 640 mGy-cm FINDINGS: LUNG BASES: The visualized lung bases are unremarkable. LIVER, GALLBLADDER, AND BILIARY TREE: The liver is normal in size, shape, and attenuation. No focal hepatic lesion or biliary ductal dilatation is present. The gallbladder is unremarkable with no evidence of radiopaque gallstones, gallbladder wall thickening, or obvious pericholecystic inflammatory changes. PANCREAS: Unremarkable. SPLEEN: Unremarkable. ADRENAL GLANDS: 1 x 2 cm low-attenuation right adrenal lesion suggestive of a benign lipid rich adenoma. The left adrenal gland is normal. KIDNEYS AND URETERS: The kidneys are normal in size, shape and contour. There are small stones in the lower pole of the left kidney, largest measuring 2 x 3 mm. No renal mass. No hydronephrosis. The collecting systems are normal. The ureters are normal in BLADDER: Unremarkable. GASTROINTESTINAL TRACT: Severe diverticulosis of the colon. The small and large bowel are otherwise unremarkable. The appendix is unremarkable. There may be a small esophageal hernia. ABDOMINAL WALL: Small umbilical left inguinal hernias containing fat. LYMPH NODES: Shotty small bowel mesentery lymphadenopathy and slight increased attenuation in the small bowel mesentery fat. No enlarged. No ascites. VASCULAR: Unremarkable. PELVIC VISCERA: Unremarkable. OSSEUS STRUCTURES: Degenerative changes of the spine. CT/CT urogram IMPRESSION: Small left renal stones. Severe diverticulosis.
[2022-09-30] MEDS: iohexoL 350 MG/ML 75 ML INFUS..BTL 85 ML IV (08:33)
== END 2022-09-30 07:54 | disposition home or self-care (01) ==
LOC: HO.CT 07:53
PROVIDERS: PCP Internal Medicine; Visit Provider Nurse Practitioner Family
DX: R31.29 Other microscopic hematuria (principal)
CPT/HCPCS: 74178; Q9967

== ENCOUNTER → 2022-10-15 14:24 | Outpatient (BNVA) | payer OTHER, SELFPAY | PROVIDERS: PCP Internal Medicine; Visit Provider Nurse Practitioner Family | DX: R31.29 Other microscopic hematuria (principal); R35.0 Frequency of micturition; R35.1 Nocturia; I10 Essential (primary) hypertension; R53.83 Other fatigue; M62.81 Muscle weakness (generalized); Z79.899 Other long term (current) drug therapy | CPT/HCPCS: 99212 ==

== ENCOUNTER 2022-10-21 08:35 | Outpatient (REF) | payer OTHER, SELFPAY ==
[2022-10-28 20:08] LABS: Testosterone, Free 69.3 pg/mL (35.0-155.0); Testosterone, Total 387 ng/dL (250-1100)
== END 2022-10-21 08:36 | disposition home or self-care (01) ==
LOC: HO.LAB 08:35
PROVIDERS: PCP Internal Medicine; Visit Provider Nurse Practitioner Family
DX: M62.81 Muscle weakness (generalized) (principal); M62.89 Other specified disorders of muscle; R53.83 Other fatigue
CPT/HCPCS: 36415; 84402; 84403

== ENCOUNTER → 2022-11-12 09:42 | Outpatient (BNVA) | payer OTHER, SELFPAY | PROVIDERS: PCP Internal Medicine; Visit Provider Nurse Practitioner Family | DX: R53.83 Other fatigue (principal); R35.1 Nocturia; R35.0 Frequency of micturition; R31.29 Other microscopic hematuria | CPT/HCPCS: 99212 ==

== ENCOUNTER 2024-02-07 19:27 | Emergency (ER) | payer SELFPAY ==
--- NOTE | ~2024-02-07 | XR_ITS ---
EXAMINATION: XR CHEST CLINICAL INFORMATION: Chest pain. COMPARISON: Chest radiograph dated 02/06/2021. TECHNIQUE: 2 views of the chest were obtained. FINDINGS: The heart is normal in size. The lungs are clear. Pleural spaces are clear. No pneumothorax. Degenerative changes of the spine. XR/XR chest 2V IMPRESSION: No acute cardiopulmonary disease.
--- NOTE | ~2024-02-07 | CT_ITS ---
EXAMINATION: CT head/brain wo IV con CLINICAL INFORMATION: Reason for Exam dizziness, word finding difficulty COMPARISON: None. TECHNIQUE: Contiguous axial imaging was performed from the skull base to vertex without intravenous contrast. Sagittal and coronal reformatted images were obtained. This CT examination was performed using dose optimization techniques as appropriate, variously including the following: * Automated exposure control * Adjustment of mA and/or kV according to patient size (this includes techniques or standardized protocols for targeted exams where dose is matched to indication/reason for exam; i.e. extremities or head) Use of iterative reconstruction technique DLP: 657 mGy-cm FINDINGS: There is no evidence of acute intracranial hemorrhage. No mass-effect or ventricular shift is noted. No acute, territorial loss of self-white differentiation. The ventricles and sulci are appropriate in size and configuration for the patient's stated age. No depressed calvarial fracture. Right maxillary sinus mucus retention cyst/polyp. The mastoid air cells are clear. CT/CT head/brain wo IV con IMPRESSION: No acute intracranial hemorrhage or territorial loss of self-white differentiation.
--- NOTE | 2024-02-07 19:33 | ECG_ITS ---
Test Reason : CHEST PAIN Blood Pressure : / mmHG Vent. Rate : 113 BPM Atrial Rate : 113 BPM P-R Int : 128 ms QRS Dur : 110 ms QT Int : 336 ms P-R-T Axes : 031 -48 090 degrees QTc Int : 460 ms Poor data quality, interpretation may be adversely affected Sinus tachycardia Possible Left atrial enlargement Left anterior fascicular block Left ventricular hypertrophy with repolarization abnormality ( R in aVL , Harrison product , Romhilt-Mccoy ) Cannot rule out Septal infarct , age undetermined Abnormal ECG When compared with ECG of 06-FEB-2021 20:42, Left anterior fascicular block is now Present Minimal criteria for Septal infarct are now Present T wave inversion now evident in Lateral leads Referred By: Sana Rome Electronically Signed By:RENITA OROZCO
--- NOTE | 2024-02-07 20:00 | ED.CHESTPAIN ---
HPI - Chest Pain General Chief Complaint: Neuro Symptoms/Deficit Stated Complaint: chest pain, dizzy Time Seen by Provider: 02/07/24 20:20 Source: patient Mode of arrival: ambulatory Limitations: no limitations History of Present Illness ED Provider: Georges IBANEZ narrative: Patient with hx of hypertension and chronic dizziness comes here for 1 week of nonspecific complaints from palpitation to mental confusion to slurred speech especially for last 3 days no weakness patient is unable to get fair amount of sleep for some time has chronic dizziness for over months not taking any medication no headache no fever no chills no chest pain Related Data Home Medications ?Medication ?Instructions ?Recorded ?Confirmed lisinopril 20 1 tab PO DAILY 04/15/22 mg-hydrochlorothiazide 25 mg tablet atorvastatin 10 mg tablet 10 mg PO DAILY 09/02/22 Previous Rx's ?Medication ?Instructions ?Recorded lorazepam 1 mg tablet (Ativan) 1 mg PO BEDTIME PRN anxietysleep 02/07/24 #20 tabs meclizine 12.5 mg tablet 12.5 mg PO TID PRN dizziness #20 02/07/24 tabs Allergies Allergy/AdvReac Type Severity Reaction Status Date / Time No Known Allergies Allergy Verified 02/07/24 20:08 Review of Systems Review of Systems: Yes all other systems are reviewed and are negative [facility] Past Medical History Medical History Hypertension Social History Social History Alcohol intake: current Alcohol intake frequency: a few times a week Alcohol type: beer Smoked in Last 30 Days: No Use of substances other than those prescribed or required for medical reasons: No Advance Directives: No Advance Directives Information Provided: No Physical Exam Vital Signs: Vital Signs: Last Vital Signs Temp 98.5 F 02/07/24 22:14 Pulse 76 02/07/24 22:14 Resp 16 02/07/24 22:14 BP 158/89 H 02/07/24 22:14 Pulse Ox 97 02/07/24 22:14 O2 Del Method Room Air 02/07/24 22:14 BMI result Body Mass Index 31.2 Appearance: Alert. Oriented X3. No acute distress. Eyes: PERRLA, No Nystagmus ENT: Pharynx normal. Oral Mucosa moist Neck: Normal inspection. Neck supple. CVS: Normal heart rate and rhythm. Pulses normal. Respiratory: No respiratory distress. Equal air entry bilateral, no wheezing/rales/rhonchi Abdomen: Soft and nontender. Bowel sounds are present, no mass palpable, no CVA tenderness Skin: Skin warm and dry. Normal skin color. Normal skin turgor. Extremities: No lower extremity edema. No calf tenderness Neuro: Oriented X 3. No motor deficit. No sensory deficit.No cerebellar signs , cranial nerves II-XII intact Course Course Course Narrative: This is a Rapid Medical Examination (RME) performed by Tiffany Rome PA-C in triage. Full HPI, ROS, assessment and treatment plan per primary provider in the Main ED. 58 yo male with history of HTN presents to the ER for evaluation of worsening weakness and tiredness for the last couple of months. He reports increased dizziness early last week and then had episodes of chest pains at the end of the week. Patient also reports word finding difficulties that started last week and is worsening. Upon examination in triage patient developed worsening difficulty speaking and following commands in triage. Diaphoretic, tachycardic. 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 02/07/24 20:40 02/07/24 20:40 Labs: Lab Results 02/07/24 02/07/24 02/07/24 Range/Units 20:39 20:40 21:05 WBC 7.4 (4.8-10.8) X10*3/uL RBC 5.05 (4.60-5.80) X10*6/uL Hgb 15.7 (14.0-18.0) g/dl Hct 42.7 (42.0-52.0) % MCV 84.6 (80.0-98.0) fL MCH 31.1 (27.0-33.0) pg MCHC 36.8 H (31.0-36.0) g/dl RDW 12.1 (11.0-16.0) % Plt Count 224 (160-400) X10*3/uL MPV 9.9 (9.4-12.4) fL Immature Gran % (Auto) 0.1 (0.0-0.4) % Neut % (Auto) 71.6 (45-73) % Lymph % (Auto) 16.4 L (20-40) % [place] % (Auto) 10.6 (2-11) % Eos % (Auto) 0.8 (0-4) % Baso % (Auto) 0.5 (0-2) % Lymph # (Auto) 1.2 (1.2-4.9) X10*3/uL [place] # (Auto) 0.8 (0.1-1.2) X10*3/uL Eos # (Auto) 0.1 (0.0-0.4) X10*3/uL Baso # (Auto) 0.0 (0.0-0.2) X10*3/uL Abs Immat Gran (auto) 0.01 (0.00-0.03) X10*3/uL Absolute Neuts (auto) 5.3 (2.0-8.3) x10*3/uL Absolute Nucleated RBC 0.000 (0.0-0.012) X10*3/uL Nucleated RBC % (auto) 0.0 (0.0-0.2) /100WBC PT 11.2 (11.1-13.3) SEC INR 0.9 (0.9-1.1) APTT 29.4 (26.0-36.8) SEC Sodium 138 (135-145) mmol/L Potassium 3.3 (3.3-5.1) mmol/L Chloride 105 (96-108) mmol/L Carbon Dioxide 23 (22-29) mmol/L Anion Gap 13 (12-20) BUN 12 (9-16) mg/dL Creatinine 0.96 (0.5-1.4) mg/dL Estim Creat Clear Calc 85.1 Estimated GFR > 60 Random Glucose 99 (60-115) mg/dL Calcium 9.6 (8.4-10.2) mg/dL Magnesium 1.9 (1.6-2.6) mg/dL Total Bilirubin 1.2 H (0.0-1.0) mg/dL Direct Bilirubin 0.3 (0.0-0.5) mg/dL AST 16 (5-37) U/L ALT 23 (0-40) U/L Alkaline Phosphatase 61 (39-117) U/L Troponin I High Sens 18.1 (<3.5-35.0) ng/L Total Protein 7.5 (6.5-8.0) g/dL Albumin 4.2 (3.5-5.0) g/dL Urine Color Yellow Urine Appearance Clear Urine pH 5.5 (5.0-9.0) Ur Specific [place] 1.015 (1.005-1.025) Urine Protein Negative (Neg-Trace) mg/dL Urine Glucose (UA) Negative (Negative) mg/dL Urine Ketones Negative (Negative) mg/dL Urine Blood Moderate (2+) H (Negative) Urine Nitrite Negative (Negative) Ur Leukocyte Esterase Negative (Negative) Urine RBC 6-10 H (0-2) /HPF Urine WBC 0-5 (0-5) /HPF Ur Squamous Epith Cells 0-2 (0-2) /HPF Urine Bacteria None Seen (None Seen) Hyaline Casts 0-2 (0-2) /LPF Urine Opiates Screen Not Detected (Not Detect) Ur Buprenorphine Scrn Not Detected (Not Detect) ng/mL Ur Oxycodone Screen Not Detected (Not Detect) ng/mL Urine Methadone Screen Not Detected (Not Detect) ng/mL Urine Fentanyl Screen Not Detected (Not Detect) Ur Barbiturates Screen Not Detected (Not Detect) Ur Phencyclidine Scrn Not Detected (Not Detect) Ur Amphetamines Screen Not Detected (Not Detect) U Benzodiazepines Scrn Not Detected (Not Detect) Urine Cocaine Screen Not Detected (Not Detect) U Marijuana (THC) Screen Not Detected (Not Detect) Ethyl Alcohol < 10 mg/dL COVID-19 (AMBIKA) Negative (Negative) COVID-19 Clin Com See Note Independent Interpretation I performed an independent interpretation of an: EKG and CT Scan Interpretation: Sinus rhythm heart rate 113 beats per minute LVH left anterior fascicular block no acute ST-T changes no acute ischemia Discharge Plan Discharge Clinical Impression: Heart palpitations, Dizziness, nonspecific Patient Disposition: Home, Self-Care Instructions: Heart Palpitations (DC), Dizziness (ED) Additional Instructions: Continue medication for your blood pressure Meclizine 1 tablet every 8 hours as needed for severe dizziness Lorazepam 1 mg tablet at bedtime as needed to sleep and relax Prescriptions: New meclizine 12.5 mg tablet 12.5 mg PO TID PRN (Reason: dizziness) Qty: 20 0RF lorazepam [Ativan] 1 mg tablet 1 mg PO BEDTIME MDD anxiety/sleep PRN (Reason: anxietysleep) Qty: 20 0RF No Action atorvastatin 10 mg tablet 10 mg PO DAILY lisinopril-hydrochlorothiazide 20-25 mg tablet 1 tab PO DAILY Referrals: Garfield Cowart MD [Physician] - 3 days Print Language: Yi
[2024-02-07 20:01] VITALS: BP 139/98; PULSE 108; RESP 16; TEMP 37; O2SAT 97; BMI 31.2
[2024-02-07 20:38] VITALS: BP 146/110; PULSE 91; RESP 16; TEMP 37; O2SAT 100
--- NOTE | 2024-02-07 20:45 | MHC.EDTECH ---
This pct just assumed care of patient ,blood drawn ,rsv/covid swab collected all sent to lab .
[2024-02-07 20:46] LABS: MANUAL DIFF FLAG NO
[2024-02-07 20:48] LABS: Basophils Percent Auto 0.5 % (0-2); Eosinophils Absolute Auto 0.1 X10*3/uL (0.0-0.4); Eosinophils Percent Auto 0.8 % (0-4); Hematocrit 42.7 % (42.0-52.0); Hemoglobin 15.7 g/dl (14.0-18.0); Imm Gran Abs Auto 0.01 X10*3/uL (0.00-0.03); Imm Gran Pct Auto 0.1 % (0.0-0.4); Lymphocytes Absolute Auto 1.2 X10*3/uL (1.2-4.9); Lymphocytes Percent Auto 16.4 % (20-40); Mean Corpuscular HGB Conc 36.8 g/dl (31.0-36.0); Mean Corpuscular Hemoglobin 31.1 pg (27.0-33.0); Mean Corpuscular Volume 84.6 fL (80.0-98.0); Mean Platelet Volume 9.9 fL (9.4-12.4); Monocytes Absolute Auto 0.8 X10*3/uL (0.1-1.2); Monocytes Percent Auto 10.6 % (2-11); Neutrophils Absolute Auto 5.3 x10*3/uL (2.0-8.3); Neutrophils Percent Auto 71.6 % (45-73); Platelet Count 224 X10*3/uL (160-400); Red Blood Count 5.05 X10*6/uL (4.60-5.80); Red Cell Distribution Width 12.1 % (11.0-16.0); White Blood Count 7.4 X10*3/uL (4.8-10.8)
[2024-02-07 20:58] LABS: Ethanol < 10 mg/dL; INTERNATIONAL NORM RATIO 0.9 (0.9-1.1); Prothrombin Time 11.2 SEC (11.1-13.3)
[2024-02-07 21:00] LABS: Partial Thromboplastin Time 29.4 SEC (26.0-36.8)
[2024-02-07 21:00] LABS: COVID-19 Test Negative (Negative); IDNOW Serial# 152EDE1D
[2024-02-07 21:01] LABS: Alanine Aminotransferase 23 U/L (0-40); Albumin Level 4.2 g/dL (3.5-5.0); Alkaline Phosphatase 61 U/L (39-117); Anion Gap 13 (12-20); Aspartate Amino Transferase 16 U/L (5-37); Bilirubin Direct 0.3 mg/dL (0.0-0.5); Bilirubin Total 1.2 mg/dL (0.0-1.0); Blood Urea Nitrogen 12 mg/dL (9-16); Calcium 9.6 mg/dL (8.4-10.2); Carbon Dioxide 23 mmol/L (22-29); Chloride 105 mmol/L (96-108); Creatinine Clr Calc Pharmacy 85.1; Estimated Glomerular Filt Rate > 60; Glucose Random 99 mg/dL (60-115); Magnesium 1.9 mg/dL (1.6-2.6); Potassium 3.3 mmol/L (3.3-5.1); Sodium 138 mmol/L (135-145); Total Protein 7.5 g/dL (6.5-8.0)
[2024-02-07 21:08] LABS: Troponin-I High Sensitivity 18.1 ng/L (<3.5-35.0)
[2024-02-07 21:23] LABS: Appearance Urine Clear; Color Urine Yellow; Glucose Urine UA Negative (Negative); Leukocyte Esterase Urine Negative (Negative); Nitrite Urine Negative (Negative); PH 5.5 (5.0-9.0); Specific Gravity - Urine 1.015 (1.005-1.025); UMIC TRIGGER UACC YES; Urine Blood Moderate (2+) (Negative); Urine Ketones Negative (Negative); Urine Protein Negative (Neg-Trace)
[2024-02-07 21:33] LABS: Bacteria Urine None Seen (None Seen); Hyaline Casts Urine 0-2 /LPF (0-2); Squamous Epithelial Cell Urine 0-2 /HPF (0-2); WBC Urine 0-5 /HPF (0-5)
[2024-02-07 22:10] LABS: Amphetamine Screen Urine Not Detected (Not Detect); Barbiturates, Urine Not Detected (Not Detect); Benzodiazepines Screen Urine Not Detected (Not Detect); Buprenorphine Scr Not Detected (Not Detect); Cannabinoid Screen Urine Not Detected (Not Detect); Cocaine Screen Urine Not Detected (Not Detect); Fentanyl, urine Not Detected (Not Detect); Methadone Screen, Urine Not Detected (Not Detect); Opiate Screen Urine Not Detected (Not Detect); Oxycodone Screen Urine Not Detected (Not Detect); Phencyclidine Screen Urine Not Detected (Not Detect)
[2024-02-07 22:14] VITALS: BP 158/89; PULSE 76; RESP 16; TEMP 36.9; O2SAT 97
[2024-02-08 00:11] VITALS: BP 121/87; PULSE 84; RESP 16; TEMP 36.6; O2SAT 98
[2024-02-08] MEDS: Meclizine HCl 25 MG TABLET PO (00:18)
[2024-02-08 00:23] VITALS: BP 121/87; PULSE 84; RESP 16; TEMP 36.6; O2SAT 98
== END 2024-02-08 00:23 | disposition home or self-care (01) ==
PROVIDERS: Physician Assistant; Emergency Provider Internal Medicine; PCP Internal Medicine
DX: R00.2 Palpitations (principal); R42 Dizziness and giddiness; R07.9 Chest pain, unspecified; Z11.52 Encounter for screening for COVID-19; I10 Essential (primary) hypertension; Z79.02 Long term (current) use of antithrombotics/antiplatelets; Z79.899 Other long term (current) drug therapy
CPT/HCPCS: 36415; 70450; 71046; 80048; 80076; 80307; 81001; 83735; 84484; 85025; 85610; 85730; 87635; 93005; 99284

== ENCOUNTER 2024-09-19 09:43 | Outpatient (AMB) | payer OTHER, SELFPAY ==
--- NOTE | 2024-09-19 09:51 | A.OFFPC_ITS ---
Vital Signs 09/19/24 09:56 Height 5 ft 5 in Weight 195 lb BMI 32.4 BP 130/82 Blood Pressure Location Rt brachial Pulse 59 Pulse Source Pulse Oximeter Temp 97.3 F Pulse Oximetry (%) 98 Intake Visit Reasons: physical Intake Note: always feels dizzy but seems to be getting worse and more tired than normal. Allergies No Known Allergies Allergy (Verified 09/19/24 10:30) Medication List - Last Reconciled 09/19/24 by Chandni Duran PA-C lisinopril-hydrochlorothiazide 20-25 mg 1 tab PO DAILY PFSH Medical History (Updated 09/19/24 @ 10:48 by Chandni uDran PA-C) Class 1 obesity with body mass index (BMI) of 32.0 to 32.9 in adult Screening for malignant neoplasm of colon declined (~09/19/24) Dizziness Annual physical exam Major depressive disorder Anxiety disorder Hyperparathyroidism Hypertension Social History Alcohol intake: current Alcohol intake frequency: a few times a week Alcohol type: beer Questionnaire PHQ-9 Over the last 2 weeks, how often have you been bothered by any of the following problems? 1. Little interest or pleasure in doing things: nearly every day 2. Feeling down, depressed, or hopeless: several days 3. Trouble falling or staying asleep, or sleeping too much: nearly every day 4. Feeling tired or having little energy: nearly every day 5. Poor appetite or overeating: several days 6. Feeling bad about yourself - or that you are a failure or have let yourself or your family down: not at all 7. Trouble concentrating on things, such as reading the newspaper or watching television: several days 8. Moving or speaking so slowly that other people could have noticed. Or the opposite - being so fidgety or restless that you have been moving around a lot more than usual: not at all 9. Thoughts that you would be better off or of hurting yourself in some way: not at all Total score: 12 Depression Screening Interpretation: Positive Depression Screening Follow-up: Declines treatment (No SI/HI/AVH) Depression Screening Done: Yes 13538 - PHQ-9 Billing: Yes Source: Developed by Drs. Corona LRadha Posada Kurt Kroenke and colleagues, with an educational rena from [employer]. Thrive Questionnaire Date Thrive assessed: 09/19/24 I am a: Patient AUDIT C Alcohol Use Questionnaire (AUDIT-C) 1. How often do you have a drink containing alcohol?: 2-3 times a week 2. How many drinks containing alcohol do you have on a typical day when you are drinking?: 5 or 6 3. How often do you have six or more drinks on one occasion?: Weekly Total Score: 8 Score Reviewed/Action Taken: No (pt declined ) LAURA-7 AMB Questionnaire LAURA-7 Date LAURA - 7 assessed: 09/19/24 Feeling nervous, anxious, or on edge: 1 = Several days Not being able to stop or control worryin = Several days Worrying too much about different things: 3 = Nearly every day Trouble relaxin = Several days Being so restless that it is hard to sit still: 0 = Not at all Becoming easily annoyed or irritable: 1 = Several days Feeling afraid as if something awful might happen: 0 = Not at all Total LAURA-7 score (0-4 normal; 5-9 mild; 10-14 moderate; 15-21 severe): 7 Source: Developed by Drs. Corona Clifton, Reggie Ayoub and colleagues, with an educational rena from [employer]. LAURA-7 Assessment Billing LAURA-7 Assessment Tool: LAURA-7 Assessment 46976 (pt declined ) Physical exam (Primary Care) Vital Signs: Last Vital Signs Temp 97.3 F 09/19/24 09:56 Pulse 59 09/19/24 09:56 BP 130/82 09/19/24 09:56 Pulse Ox 98 09/19/24 09:56 Care Plan Goal for BP management: <130/80 at Goal BMI result Body Mass Index 32.4 BMI Assessment/Plan discussion: High BMI High, discussed plan: lifestyle, weight reduction, dietary, physical activity and alcohol moderation PHQ-9: PHQ-9 Score PHQ-9: Total score 12 09/19/24 10:04 Depression Screening Interpretation: Positive Depression Screening Follow-up: Declines treatment (No SI/HI/AVH) Thrive Assessment: Date of Thrive Assessment Date Thrive assessed 09/19/24 09/19/24 10:04 Coding Level of Care Code New Pt Level 4 (12553) New Pt Prev Care 40-64y(68759) Diagnoses Annual physical exam Z00.00 Fatigue R53.83 Dizziness R42 Screening for malignant neoplasm of colon declined Z53.20 Major depressive disorder F32.9 Hyperparathyroidism E21.3 Anxiety disorder F41.9 Hypertension I10 Urinary frequency R35.0 Nocturia R35.1 Class 1 obesity with body mass index (BMI) of 32.0 to 32.9 in adult E66.811; Z68.32 Additional Codes PHQ-9 - 09076 - PHQ-9 Billing: Yes ([id number]) LAURA-7 Assessment Billing - LAURA-7 Assessment Tool: LAURA-7 Assessment 99688 ([id number]) Assessment & Plan Assessment & Plan (1) Annual physical exam: Code(s): Z00.00 - Encounter for general adult medical examination without abnormal findings Category: Medical (2) Fatigue: Code(s): R53.83 - Other fatigue Category: Medical Plan: Initiate comprehensive labs and imaging with CT scan of brain, carotid ultrasound and repeat of echocardiogram. Monitor and manage with potential Meclizine use for dizziness. Encourage dietary changes and stress monitoring. (3) Dizziness: Code(s): R42 - Dizziness and giddiness Category: Medical Plan: Conduct head CT, labs. Start Meclizine. Advise hydration and safe activity habits. (4) Screening for malignant neoplasm of colon declined: Onset Date: ~09/19/24 Code(s): Z53.20 - Procedure and treatment not carried out because of patient's decision for unspecified reasons Category: Medical Plan: Patient was offered colonoscopy and Cologuard although patient declined at this time will offer at next visit in 3 months. (5) Major depressive disorder: Code(s): F32.9 - Major depressive disorder, single episode, unspecified Category: Medical Plan: Monitor mental health status, providing supportive resources if needed. Although patient declined at this time does not feel like he needs any therapist or psychiatrist or any medications at this time. Will continue to monitor. (6) Hyperparathyroidism: Code(s): E21.3 - Hyperparathyroidism, unspecified Category: Medical Plan: Condition is chronic and stable reassess labs. (7) Anxiety disorder: Code(s): F41.9 - Anxiety disorder, unspecified Category: Medical Plan: Monitor mental health status, providing supportive resources if needed. Although patient declined at this time does not feel like he needs any therapist or psychiatrist or any medications at this time. Will continue to monitor. (8) Hypertension: Code(s): I10 - Essential (primary) hypertension Category: Medical Plan: Blood pressure goal less than 130/80. Patient at go. Patient to continue lisinopril-hydrochlorothiazide, 20-25 mg daily. Condition is chronic and stable continue to monitor. (9) Urinary frequency: Code(s): R35.0 - Frequency of micturition Category: Medical Plan: Condition is chronic and stable will continue to monitor. (10) Nocturia: Code(s): R35.1 - Nocturia Category: Medical Plan: Condition is chronic and stable continue to monitor. (11) Class 1 obesity with body mass index (BMI) of 32.0 to 32.9 in adult: Code(s): E66.811 - Obesity, class 1; Z68.32 - Body mass index [BMI] 32.0-32.9, adult Category: Medical Plan: Patient has improved his diet and exercise regimen. Condition is chronic and stable continue to monitor. Plan Plan Patient was informed and verbally consented to the use of an ambient scribe for clinic note documentation during this visit. 1. Hyperparathyroidism Regular lab review and monitoring without acute intervention. 2. Fatigue Initiate comprehensive labs and imaging. Monitor and manage with potential Meclizine use for dizziness. Encourage dietary changes and stress monitoring. 3. Dizziness Conduct head CT, labs. Start Meclizine. Advise hydration and safe activity habits. 4. Essential Hypertension Continue current antihypertensive therapy. Stress lifestyle modifications. Provide refill. 6. Depression Monitor mental health status, providing supportive resources if needed. Discussion Notes During our consultation, I explained the primary concern being the significant increase in fatigue and dizziness experienced over the last six months. We discussed a tailored diagnostic approach including comprehensive lab work, head CT, carotid ultrasound, and echocardiogram to determine underlying causes. I detailed the benefits of addressing potential cardiovascular concerns early and the importance of ruling out metabolic or neurological causes. We reviewed the potential side effects and benefits of using Meclizine for symptomatic relief and agreed on continued use if effective. In discussing hypertension management, I emphasized lifestyle alterations in conjunction with pharmacotherapy to optimize blood pressure control. Our conversation included a focus on providing reassurances about past mental health concerns, clarifying support availability if symptoms escalate. I advised a follow-up in three months for re-evaluation, ensuring timely completion of all recommended diagnostic evaluations. Orders: Orders Complete Blood Count Auto Diff Today Z00.00 - Encounter for general adult medi eric examination without abnormal findings B Type Natriuretic Peptide Today R60.0 - Localized edema Hemoglobin A1c Today Z00.00 - Encounter for general adult medical examination without abnormal findings Lipid Panel Today Z00.00 - Encounter for general adult medical examination without abnormal findings Magnesium Today Z00.00 - Encounter for general adult medical examination without abnormal findings PSA,Total (Free>4and<10) Today Z00.00 - Encounter for general adult medical examination without abnormal findings Vitamin B1 Today Z00.00 - Encounter for general adult medical examination without abnormal findings US carotid duplex BI Today R42 - Dizziness and giddiness, R53.83 - Other fatigue CA echo transthoracic complete Today R42 - Dizziness and giddiness, R53.83 - Other fatigue C Reactive Protein Today Z00.00 - Encounter for general adult medical examination without abnormal findings Comprehensive [place]. Panel Fast Today Z00.00 - Encounter for general adult medical examination without abnormal findings Erythrocyte Sedimentation Rate Today Z00.00 - Encounter for general adult medical examination without abnormal findings Liver Panel Today Z00.00 - Encounter for general adult medical examination without abnormal findings Parathyroid Hormone Intact Today Z00.00 - Encounter for general adult medical examination without abnormal findings Phosphorus Today Z00.00 - Encounter for general adult medical examination without abnormal findings Vitamin D 25-OH Total Today Z00.00 - Encounter for general adult medical examination without abnormal findings Vitamin B12 and Folate Today Z00.00 - Encounter for general adult medical examination without abnormal findings TSH reflex Free T4 Today Z00.00 - Encounter for general adult medical examination without abnormal findings Zinc Today Z00.00 - Encounter for general adult medical examination without abnormal findings Vitamin A Today Z00.00 - Encounter for general adult medical examination without abnormal findings IRON PROFILE Today D64.9 - Anemia, unspecified Ferritin Today D64.9 - Anemia, unspecified CT head/brain wo IV con Today R42 - Dizziness and giddiness, R53.83 - Other fatigue Creatine Kinase Total Today Z00.00 - Encounter for general adult medical examination without abnormal findings Medications: Refilled lisinopril-hydrochlorothiazide 20-25 mg 1 tab PO DAILY 90 tabs 1RF meclizine 12.5 mg PO TID PRN 30 tabs 1RF dizziness Patient Instructions: Patient Instructions - Proceed with the prescribed blood work and imaging studies promptly, ensuring fasting prior to labs as instructed. - Continue taking Lisinopril Hydrochlorothiazide as prescribed and refill promptly. - Consider lifestyle modifications such as reducing salt intake, avoiding high- fat foods, and increasing physical activity. - Utilize Meclizine as needed for dizziness, but only as prescribed. - Monitor symptoms closely, and attend follow-up in three months with completed diagnostics. - Stay hydrated and avoid quick position changes to help reduce dizziness episodes. - Contact our office if symptoms notably worsen or if assistance with mental health resources is needed. - Maintain regular monitoring of blood pressure and report any concerns or significant changes. Scribe Plan - Not visible on output: History of Present Illness The patient is a 58-year-old male presenting for annual physical. In addition he would like to discuss fatigue and dizziness that he has been experience for the past six months, with an increase in severity and frequency. He describes a constant fatigue that impacts his daily function and memory. He reports dizziness that interferes with reading and balance. He denies shortness of breath, chest pain, or respiratory-related activity limitations. The sy mptoms, particularly the fatigue, worsen notably after working long hours. The patient has not consulted a neurologist for these symptoms. He had an EKG that showed chronic changes and an echocardiogram performed in 2020 due to similar issues. He experiences difficulty sleeping, frequent nighttime urination, and reduces symptoms with rest. The increased fatigue is particularly incapacitating after intensive work periods, indicating a potential correlation with job-related stress or workload. Social History - Employment: Works approximately 45 to 48 hours over four-day periods, reporting fatigue post shifts. - Nutrition: Reports consuming midnight snacks. - Exercise and Activity: No specific physical exertion reported; declines experiencing associated shortness of breath with activity. - Substance Use: Denies alcohol consumption during workdays. Review of Systems - General: Reports fatigue and dizziness; denies weight loss. - Respiratory: Denies shortness of breath. - Cardiovascular: Denies chest pain. - Gastrointestinal: Reports frequent urination. - Neurological: Denies focal weakness or numbness; reports dizziness and memory impact. Physical Exam Appearance: Alert. Oriented X3. No acute distress. Head: Normal external exam. Normocephalic. Atraumatic. Eyes: Pupils are equal, round, and reactive to light. Extraocular movements intact. Conjunctiva and sclera normal. Eyelids normal. Ears: External auditory canal normal. Tympanic membranes normal. Throat: Pharynx normal. Uvula midline. Moist mucous membranes. Neck: Normal inspection. Neck supple. Full range of motion. No adenopathy. Thyroid Normal. No meningeal signs. No neck mass noted. Cardiovascular: Normal heart rate and rhythm. Heart sound normal. Murmur noted. Pulses normal throughout. Respiratory: No respiratory distress. Painless inspiration. Breath sounds normal. No wheezes/rales/rhonchi noted. Chest nontender. No accessory muscle usage noted or decreased air movement noted. Abdomen: Soft and nontender. Bowel sounds normal in all 4 quadrants. No distention noted. No organomegaly noted. No visible injury noted. Back: No costovertebral angle tenderness. Full range of motion noted. Skin: Skin warm and dry. Normal skin color. Normal skin turgor. No rashes/lesions/lacerations noted. Extremities: No lower extremity edema. Extremities exhibit normal range of motion. Extremities nontender. Neuro: Oriented X 3. No motor deficit. No sensory deficit. Reflexes normal. Negative pronator drift. No nystagmus. Normal steady gait. Normal shrug raise. Normal smile. Patient able to stick out his tongue move it from side to side. Patient able to puff out cheeks. Normal neuro exam at this time. Results - EKG (January 2024): Sinus tachycardia, left atrial enlargement, left anterior fascicular block, left ventricular hypertrophy. - Echocardiogram (2020): Previously conducted; further evaluation planned.
[2024-09-19 09:56] VITALS: BP 130/82; PULSE 59; TEMP 36.3; O2SAT 98; BMI 32.4
--- OUTSIDE RECORDS SUMMARY | 2024-09-19 11:07 | XMS_ITS ---
Author Organization [facility] Address [address] [place] [address] Care Team Providers Care Reports Analysis Manager Name Role Phone Nuha (RETIRED) Corona SOLIS Primary Care Provid er Unavailable Corona Booker Unavailable [phone] REASON FOR VISIT Patient presents today for a discuss colonoscopy Encounters Encounter Location Date Provider Diagnosis [facility] [address] [place] [phone] 05/24/2024 Corona Booker Plan Of Treatment No Information Progress Notes * Ronen EVANS DDOB:1965 (58 yo M)Acc No.[id number]:05/24/2024 Progress Notes Patient:?Ronen EVANS Provider:?Corona Booker MD :1965???Age:58 Y???Sex:Male Ravindra e:05/24/2024 Address: [address] [id number] Pcp:Corona Breen (RETIRE D), DO Subjective: * Chief Complaints: * ???1. Patient presents today for a discuss colonoscopy. * Medical History:? Objective: * Vitals:? Assessment: Plan: * Treatment: * * The named appointment provid er may or may not be the originator of this progress note, and it is not deemed complete until electronically signed by the appointment provider. Sign off status: Pending * Provider:?Corona Booker MD Date:? 024 Generated for Bong esteban/Clayton/eTransmitting on:?09/19/2024 11:07 AM EDT
--- OUTSIDE RECORDS SUMMARY | 2024-09-19 11:07 | XMS_ITS ---
Author Organization [facility] Address [address] [place] [address] Care Team Providers Care Web Press Operator Assistant Name Role Phone Nuha (RETIRED) Corona SOLIS Primary Care Provid er Unavailable Corona Booker Unavailable [phone] REASON FOR VISIT conf appt Encounters Encounter Location Date Provider Diagnosis [facility] [address] [place] [phone] 05/23/2024 Corona Booker Plan Of Treatment No Information Progress Notes * Ronen EVANS DDOB:1965 (58 yo M)Acc No.[id number]:05/23/2024 Patient:?Ronen Evans :1965???Age:58 Y???Sex:Male Address:[address] [place], [address] * true * Date:? Generated for Lauriei carlito/Clayton/eTransmitting on:?09/19/2024 11:07 AM EDT
--- OUTSIDE RECORDS SUMMARY | 2024-09-19 11:07 | XMS_ITS ---
Author Organization [facility] Address [address] [place] [address] Care Team Providers Care Pomology Teacher Name Role Phone Nuha (RETIRED) Corona SOLIS Primary Care Provid er Unavailable Corona Booker Unavailable [phone] REASON FOR VISIT new insurance? Encounters Encounter Location Date Provider Diagnosis [facility] [address] [place] [phone] 04/06/2024 Corona Booker Plan Of Treatment No Information Progress Notes * Ronen EVANS DDOB:1965 (58 yo M)Acc No.[id number]:04/06/2024 Patient:?Ronen Evans :1965???Age:58 Y???Sex:Male Address:[address] [place], [address] * true * Date:? Generated for Lauriei carlito/Clayton/eTransmitting on:?09/19/2024 11:07 AM EDT
--- OUTSIDE RECORDS SUMMARY | 2024-09-19 11:08 | XMS_ITS | Patient Health Record ---
Author Organization [facility] Address [address] [place] [address] Care Team Providers Care Motor Route Carrier Name Role Phone Nuha (RETIRED) Corona SOLIS Primary Care Provid er Unavailable Corona Booker Unavailable [phone] Allergies No Known Allergies Reason For Referral No Information Medications Medication SIG (Take, Route, Frequency, Duration) Notes Start Date End Date Status Lisinopril-hydroCHLOROthia zide 20-25 MG 1 tablet Orally Once a day for 30 day(s) Active Immunizations Vaccine Route Administration Date Status Comme nts Influenza Unknown 04/02/2021 Administered Social History Tobacco Use: Social History Observation Description Date Details (start date - stop date) Never Smoker NA - NA Tobacco Use/Smoking Question Answer Notes Patient is a nonsmoker Alcohol Screen Question Answer Notes Did you have a drink contain ing alcohol in the past year? Yes How often did you have a dri nk containing alcohol in the past year? 2 to 3 times a week (3 points) How many drinks did you have on a typical day when you were drinking in the past year? 5 or 6 drinks (2 points) How often did you have 6 or more drinks on one occasion in the past year? Monthly (2 points) Points 7 Interpretation Positive Section Notes: Nonsmoker; no sig alcohol Problems Problem Type SNOMED Code ICD Code Onset Dates Problem Status W/U Status Risk Notes Problem 603968585 Encounter for screening for malignant neoplasm of colon (Z12.11) Active confirmed Problem [id number] Preprocedural examination (Z01.818) Active confirmed Encounters Encounter Location Date Provider Diagnosis [facility] [address] [place] [phone] 04/06/2024 Corona Booker [facility] [address] [place] [phone] 05/23/2024 Corona Booker Plan Of Treatment Future Test Test Name Order Date COLONOSCOPY 04/23/2021 Insurance Providers Payer Name Payer Address Payer Phone Subscriber Number Group Number Insured Name Patient Relationship to Insured Coverage Start Date Coverage End Date [employer]ICA[employer] [address] [place] [id number] Ronen Evans Self - patient is the insured Medical (General) History Medical History History ICD Code HTN Denies RI,DM,CVA,Lung disease,renal dise ase Surgical History Surgery Date(Month/Year) Parathyroidectomy
== END 2024-09-19 10:42 | disposition home or self-care (01) ==
LOC: HO.HMCSH 09:43
PROVIDERS: PCP Internal Medicine; Visit Provider Physician Assistant Medical
DX: Z00.00 Encounter for general adult medical examination without abnormal findings (principal); R53.83 Other fatigue; E21.3 Hyperparathyroidism, unspecified; R42 Dizziness and giddiness; Z53.20 Procedure and treatment not carried out because of patient's decision for unspecified reasons; F32.9 Major depressive disorder, single episode, unspecified; F41.9 Anxiety disorder, unspecified; I10 Essential (primary) hypertension; R35.0 Frequency of micturition; R35.1 Nocturia; E66.811 Obesity, class 1; Z68.32 Body mass index [BMI] 32.0-32.9, adult

== ENCOUNTER → 2024-09-19 09:43 | Outpatient (BNVA) | payer OTHER, SELFPAY | PROVIDERS: PCP Internal Medicine; Visit Provider Physician Assistant Medical | DX: Z00.00 Encounter for general adult medical examination without abnormal findings (principal); R53.83 Other fatigue; R42 Dizziness and giddiness; F32.0 Major depressive disorder, single episode, mild; F41.9 Anxiety disorder, unspecified; R35.0 Frequency of micturition; R35.1 Nocturia; I10 Essential (primary) hypertension; F32.9 Major depressive disorder, single episode, unspecified; E21.3 Hyperparathyroidism, unspecified; E66.811 Obesity, class 1; Z68.32 Body mass index [BMI] 32.0-32.9, adult | CPT/HCPCS: 96127; 99202; 99386 ==

== ENCOUNTER 2024-09-21 09:05 | Outpatient (REF) | payer OTHER, SELFPAY ==
--- OUTSIDE RECORDS SUMMARY | 2024-09-21 09:22 | XMS_ITS ---
Author Organization [facility] Address [address] [place] [address] Care Team Providers Care Doubler Operator Name Role Phone Nuha (RETIRED) Corona SOLIS Primary Care Provid er Unavailable Corona Booker Unavailable [phone] REASON FOR VISIT new insurance? Encounters Encounter Location Date Provider Diagnosis [facility] [address] [place] [phone] 04/06/2024 Corona Booker Plan Of Treatment No Information Progress Notes * Ronen EVANS DDOB:1965 (58 yo M)Acc No.[id number]:04/06/2024 Patient:?Ronen Evans :1965???Age:58 Y???Sex:Male Address:[address] [place], [address] * true * Date:? Generated for Lauriei carlito/Clayton/eTransmitting on:?09/21/2024 09:22 AM EDT
--- OUTSIDE RECORDS SUMMARY | 2024-09-21 09:22 | XMS_ITS ---
Author Organization [facility] Address [address] [place] [address] Care Team Providers Care Semiautomatic Taper Operator Name Role Phone Nuha (RETIRED) Corona SOLIS Primary Care Provid er Unavailable Corona Booker Unavailable [phone] REASON FOR VISIT Patient presents today for a discuss colonoscopy Encounters Encounter Location Date Provider Diagnosis [facility] [address] [place] [phone] 05/24/2024 Corona Booker Plan Of Treatment No Information Progress Notes * Ronen EVANS DDOB:1965 (58 yo M)Acc No.[id number]:05/24/2024 Progress Notes Patient:?Ronen EVANS Provider:?Corona Booker MD :1965???Age:58 Y???Sex:Male Ravindra e:05/24/2024 Address: [address] [id number] Pcp:Corona Breen (RETIRE D), DO Subjective: * [...] MD Date:? 024 Generated for Bong esteban/Clayton/eTransmitting on:?09/21/2024 09:22 AM EDT
--- OUTSIDE RECORDS SUMMARY | 2024-09-21 09:22 | XMS_ITS | Patient Health Record ---
Author Organization [facility] Address [address] [place] [phone] Care Team Providers Care Hides Inspector Name Role Phone Nuha (RETIRED) Corona SOLIS Primary Care Provid er Unavailable Corona Booker Unavailable [phone] Allergies No Known Allergies Reason For Referral [...] Problem Status W/U Status Risk Notes Problem [id number] Encounter for screening for malignant neoplasm of colon (Z12.11) Active confirmed Problem [id number] Preprocedural examination (Z01.818) Active confirmed Encounters Encounter Location Date Provider Diagnosis [facility] [address] [place] [phone] 04/06/[address] [facility] [address] [place] [phone] 05/23/2024 Corona Booker Plan Of Treatment Future Test Test Name Order Date COLONOSCOPY 04/23/2021 Insurance Providers Payer Name Payer Address Payer Phone Subscriber Number Group Number Insured Name Patient Relationship to Insured Coverage Start Date Coverage End Date MEDICA[employer] OF [employer] [address] [place] [id number] Ronen Evans Self - patient is the insured Medical (General) History Medical History History ICD Code HTN Denies DC,DM,CVA,Lung disease,renal dise ase Surgical History Surgery Date(Month/Year) Parathyroidectomy
--- OUTSIDE RECORDS SUMMARY | 2024-09-21 09:22 | XMS_ITS ---
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 Generated for Lauriei carlito/Clayton/eTransmitting on:?09/21/2024 09:22 AM EDT
[2024-09-21 11:12] LABS: MANUAL DIFF FLAG NO
[2024-09-21 11:50] LABS: Basophils Absolute Auto 0.1 X10*3/uL (0.0-0.2); Basophils Percent Auto 1.1 % (0-2); Eosinophils Absolute Auto 0.1 X10*3/uL (0.0-0.4); Eosinophils Percent Auto 2.9 % (0-4); Hematocrit 44.2 % (42.0-52.0); Hemoglobin 15.5 g/dl (14.0-18.0); Imm Gran Abs Auto 0.01 X10*3/uL (0.00-0.03); Imm Gran Pct Auto 0.2 % (0.0-0.4); Lymphocytes Absolute Auto 1.1 X10*3/uL (1.2-4.9); Lymphocytes Percent Auto 25.1 % (20-40); Mean Corpuscular HGB Conc 35.1 g/dl (31.0-36.0); Mean Corpuscular Hemoglobin 30.4 pg (27.0-33.0); Mean Corpuscular Volume 86.7 fL (80.0-98.0); Mean Platelet Volume 10.9 fL (9.4-12.4); Monocytes Absolute Auto 0.5 X10*3/uL (0.1-1.2); Monocytes Percent Auto 10.8 % (2-11); Neutrophils Absolute Auto 2.7 x10*3/uL (2.0-8.3); Neutrophils Percent Auto 59.9 % (45-73); Platelet Count 191 X10*3/uL (160-400); Red Cell Distribution Width 12.4 % (11.0-16.0); White Blood Count 4.5 X10*3/uL (4.8-10.8)
[2024-09-21 11:54] LABS: Estimated Average Glucose 117 mg/dL; Hemoglobin A1C 156.9883 umol/L; Hemoglobin A1c % 5.7 % (<6.0); Total Hemoglobin (HGBA1C) 4103.1238 umol/L
[2024-09-21 12:02] LABS: Parathyroid Hormone Intact 63.3 pg/mL (8.7-77.1)
[2024-09-21 12:15] LABS: PSA,Total (Free>4and<10) 1.24 ng/mL (0.00-4.00)
[2024-09-21 12:17] LABS: B Type Natriuretic Peptide 26 pg/mL (<100)
[2024-09-21 12:20] LABS: Erythrocyte Sedimentation Rate 2 MM/HR (0-15)
[2024-09-21 12:28] LABS: Folate 11.7 ng/mL (> or = 4.0); Vitamin B12 412 pg/mL (200-900)
[2024-09-21 13:05] LABS: Alanine Aminotransferase 34 U/L (0-40); Alkaline Phosphatase 57 U/L (39-117); Anion Gap 11 (12-20); Aspartate Amino Transferase 21 U/L (5-37); Bilirubin Direct 0.2 mg/dL (0.0-0.5); Bilirubin Total 0.6 mg/dL (0.0-1.0); Blood Urea Nitrogen 17 mg/dL (9-16); C Reactive Protein < 0.10 mg/dL (< or = 0.50); Calcium 9.4 mg/dL (8.4-10.2); Carbon Dioxide 28 mmol/L (22-29); Chloride 108 mmol/L (96-108); Cholesterol 207 mg/dL (<200); Estimated Glomerular Filt Rate > 60; Ferritin 122 ng/mL (20-250); Glucose Fasting 104 mg/dL (60-99); HDL Cholesterol 34 mg/dL (>40); Iron 76 mcg/dL (45-160); LDL Cholesterol Calculated 141 mg/dL (<100); Magnesium 1.9 mg/dL (1.6-2.6); Percent Iron Saturation 24 % (15-50); Phosphorus 2.7 mg/dL (2.7-4.5); Potassium 3.8 mmol/L (3.3-5.1); Sodium 143 mmol/L (135-145); TSH reflex Free T4 0.96 uIU/mL (0.32-4.0); Total Iron Binding Capacity 314 mcg/dL (228-428); Total Protein 6.9 g/dL (6.5-8.0); Triglycerides 164 mg/dL (<150); Unsaturated Iron Binding 238 ug/dL; Vitamin D 25-OH Total 26.8 ng/mL (>30)
[2024-09-25 10:09] LABS: Zinc 77 mcg/dL (60-130)
[2024-09-25 23:38] LABS: Vitamin A 76 mcg/dL (38-98)
[2024-09-28 15:47] LABS: Vitamin B1 13 nmol/L (8-30)
== END 2024-09-21 09:06 | disposition home or self-care (01) ==
LOC: HO.HMGCLDS 09:05
PROVIDERS: PCP Internal Medicine; Visit Provider Physician Assistant Medical
DX: Z00.00 Encounter for general adult medical examination without abnormal findings (principal); D64.9 Anemia, unspecified; R60.0 Localized edema
CPT/HCPCS: 36415; 80053; 80061; 80076; 82248; 82306; 82550; 82607; 82728; 82746; 83036; 83540; 83735; 83880; 83970; 84100; 84153; 84425; 84443; 84590; 84630; 85025; 85652; 86140

== ENCOUNTER → 2024-10-17 14:52 | Outpatient (REF) | payer OTHER, SELFPAY ==
--- NOTE | 2024-10-17 14:55 | CA_ITS ---
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 The visually estimated ejection fraction is >70%. - There is severely increased left ventricular wall thickness. - Peak resting LVOT gradient of 92 mm Hg; with Valsalva, up to 171 mm Hg. - No obvious valvular pathology seen on this study. Findings Left Ventricle Normal left ventricular cavity size. There is severely increased left ventricular wall thickness. The left ventricular systolic function is hyperdynamic. The visually estimated ejection fraction is >70%. There is no evidence of regional wall motion abnormalities. Evidence suggests grade I (mild) diastolic dysfunction. Peak resting LVOT gradient of 92 mm Hg; with Valsalva, up to 171 mm Hg. Right Ventricle Normal right ventricular cavity size and systolic function. Atria Both atria are normal in size. Aortic Valve The aortic valve was not well visualized. There is no aortic valve stenosis. There is no aortic valve regurgitation. Mitral Valve The mitral valve appears normal. There is no mitral valve regurgitation. There is no mitral valve stenosis. Pulmonic Valve The pulmonic valve is likely normal. Tricuspid Valve Normal tricuspid valve structure. There is trace tricuspid valve regurgitation. Borderline pulmonary artery systolic pressure. Great Vessels The asc aorta is normal in size. Venous The inferior vena cava is normal in size and collapses greater than 50% with inspiration. Pericardium/Pleural There is no evidence of pericardial effusion. Prior Study Comparison Changes noted compared to prior study dated: 03/19/2021. More prominent left ventricular hypertrophy. Gradients as described. Recommendations, Care & Conclusions No obvious valvular pathology seen on this study. Measurements 2D Linear Measurements IVSd: 1.77 0.6-0.9/0.6-1.0 cm LVIDd: 4.45 3.9-5.3/4.2-5.9 cm LVIDd Index: 2.27 2.4-3.2/2.2-3.1 cm/m2 LVIDs: 2.87 2.0-3.6 cm LVPWd: 1.70 0.7-1.1 cm Ao Root: 3.20 2.1-3.5 cm LA Diam: 4.40 2.7-3.8/3.0-4.0 cm LAIDs Index: 2.24 1.5-2.3 cm/m2 LV Mass: 425.02 67-162/88-224 g LV Mass Index: 216.85 43-95/49-115 g/m2 LVOT Diam: 2.30 3.0+(-)1.3 cm 2D Systolic Function EF 4C: 72.40 >55% EF 2C: 65.30 >55% EF BiP: 70.30 >55% Mitral Valve MV Pk E: 0.78 MV PK A: 1.04 MV Decel Time: 246.00 E/A: 0.80 E'Lateral: 4.90 E'Medial: 4.90 E/E' Med: 15.90 E/E' Lat: 15.90 PHT: 72.00 MVA PHT: 3.06 Decel [place]: 3.17 Aortic Valve AoV Pk Joseph: 3.10 AoV Mn Joseph: 2.22 AoV VTI: 0.72 AoV Pk Grad: 38.00 Aov Mn Grad: 23.00 LORI Cont.VTI: 1.39 LVOT LVOT Pk Joseph: 1.22 LVOT Mn Joseph: 0.77 LVOT VTI: 0.24 LVOT Pk Grad: 6.00 LVOT Mn Grad: 3.00 LVOT Diam: 2.30 LVOT Area: 4.15 Diastolic Function MV Pk E: 0.78 MV Pk A: 1.04 E/A: 0.80 E'Medial: 4.90 E/E' Med: 15.90 E' Laterial: 4.90 E/E' Lat: 15.90 Right Ventricle TAPSE (mm): 21.00 TVS' Joseph: 15.00 Tricuspid Valve TR Pk Joseph: 2.84 TR Pk Grad: 32.00 RA Press: 3.00 RVSP: 35.00 Great Vessels Aorta Ao Root-2D: 3.20 2.0-3.7 cm Pulmonary Valve PV Pk Joseph: 1.20 Peak PV Grad: 6.00 Updated in Other Vendor System with Status of Final Douglas Turner MD electronically signed on 10/18/2024 8:44:06 AM with status of Final
== END ==
LOC: HO.CARD 14:52
PROVIDERS: PCP Physician Assistant Medical; Visit Provider Physician Assistant Medical
DX: R42 Dizziness and giddiness (principal); R53.83 Other fatigue
CPT/HCPCS: 93306

== ENCOUNTER → 2024-10-17 14:55 | Outpatient (BNV) | payer OTHER, SELFPAY | PROVIDERS: PCP Physician Assistant Medical; Visit Provider Internal Medicine | DX: I36.1 Nonrheumatic tricuspid (valve) insufficiency (principal) | CPT/HCPCS: 93306 ==

== ENCOUNTER 2024-10-24 15:17 | Outpatient (REF) | payer OTHER, SELFPAY ==
--- NOTE | ~2024-10-24 | US_ITS ---
EXAMINATION: US EXTRACRANIAL CAROTID DUPLEX, BILATERAL CLINICAL INFORMATION: Dizziness. Giddiness. COMPARISON: None available. TECHNIQUE: Real-time ultrasound and Doppler techniques (integrating B-mode 2-D vascular images, Doppler spectral analysis and color-flow Doppler imaging) were utilized to interrogate the extracranial carotid arteries, the vertebral arteries and proximal subclavian arteries bilaterally. The degree of stenosis is determined by criteria similar to NASCET. FINDINGS: Right Side: 1. There is no atherosclerotic plaque seen in the bifurcation/proximal ICA region. 2. The common carotid artery PSV proximally is 112 cm/s and distally 107 cm/s. 3. The proximal internal carotid artery velocities are 77 cm/s systolic and 24 cm/s diastolic. 4. The proximal external carotid artery PSV is 160 cm/s. 5. The vertebral artery shows antegrade. flow. 6. The subclavian artery waveforms are triphasic. Left Side: 1. There is no atherosclerotic plaque seen in the bifurcation/proximal ICA region. 2. The common carotid artery PSV proximally is 157 cm/s and distally 102 cm/s. 3. The proximal internal carotid artery velocities are 80 cm/s systolic and 22 cm/s diastolic. 4. The proximal external carotid artery PSV is 121 cm/s. 5. The vertebral artery shows antegrade flow. 6. The subclavian artery waveforms are triphasic. Spectral broadening.. US/US carotid duplex BI IMPRESSION: 1. RIGHT: No gross plaque or hemodynamically significant stenosis by ultrasound criteria. 2. LEFT: No gross plaque or hemodynamically significant stenosis by ultrasound criteria. Electronically signed by: Magdy Vale MD 10/24/2024 03:52 PM EDT
== END 2024-10-24 15:18 | disposition home or self-care (01) ==
LOC: HO.US 15:17
PROVIDERS: PCP Physician Assistant Medical; Visit Provider Physician Assistant Medical
DX: R42 Dizziness and giddiness (principal); R53.83 Other fatigue
CPT/HCPCS: 93880

== ENCOUNTER → 2024-10-24 15:19 | Outpatient (BNV) | payer OTHER, SELFPAY | PROVIDERS: PCP Physician Assistant Medical; Visit Provider Radiology Diagnostic Radiology | DX: R42 Dizziness and giddiness (principal) | CPT/HCPCS: 93880 ==

== ENCOUNTER 2024-10-26 07:19 | Outpatient (REF) | payer OTHER, SELFPAY ==
--- NOTE | ~2024-10-26 | CT_ITS ---
CLINICAL HISTORY: R53.83 - Other fatigue CT head without contrast Comparison: CT/WI/SR - CT HEAD/BRAIN WO IV CON - 02/07/24 20:13 EDT Findings: No intra-axial mass, midline shift, hydrocephalus, or acute hemorrhage. No significant atrophy-like change or white matter disease. Mucous retention cyst in the right maxillary sinus. The orbits are unremarkable. No skull fracture. IMPRESSION: 1. No acute intracranial findings. This document has been electronically signed by: Imelda Casas MD on 10/26/2024 13:50:06
== END 2024-10-26 07:20 | disposition home or self-care (01) ==
LOC: HO.CT 07:19
PROVIDERS: PCP Physician Assistant Medical; Visit Provider Physician Assistant Medical
DX: R42 Dizziness and giddiness (principal); R53.83 Other fatigue
CPT/HCPCS: 70450

== ENCOUNTER → 2024-10-26 07:21 | Outpatient (BNV) | payer OTHER, SELFPAY | PROVIDERS: PCP Physician Assistant Medical; Visit Provider Nuclear Medicine | DX: R53.83 Other fatigue (principal) | CPT/HCPCS: 70450 ==

== ENCOUNTER 2024-11-01 08:10 | Outpatient (AMB) | payer OTHER, SELFPAY ==
[2024-11-01 08:15] VITALS: BP 120/80; PULSE 74; BMI 31.9
--- NOTE | 2024-11-01 08:15 | MHC.OFFVIS ---
Vital Signs 11/01/24 08:15 Height 5 ft 5 in Weight 191 lb 12.835 oz BMI 31.9 BP 120/80 Blood Pressure Location Lt brachial Position Sitting Pulse 74 Intake Visit Reasons: hypertrophic cardiomyopathy Intake Note: Follow-up with ekg dx cmp c/o chest pain sometimes Allergies No Known Allergies Allergy (Verified 09/19/24 10:30) Medication List - Last Reconciled 11/01/24 by Douglas Turner MD cholecalciferol (vitamin D3) 50 mcg PO DAILY lisinopril-hydrochlorothiazide 20-25 mg 1 tab PO DAILY meclizine 12.5 mg PO TID PRN rosuvastatin (Crestor) 10 mg PO DAILY HPI Comments Details: Ronen is here for consultation regarding hypertrophic cardiomyopathy noted on recent echocardiogram. Patient states that he does not have any prior cardiac history. He states he has been chronically racing going back almost decades. However, dizziness is more frequent these days. It can happen after physical exertion or upon standing. Random chest pains more so on the right side. He also gets short of breath with activity. He believes a lot of these are chronic going back years but more frequent and bothersome lately. On medication for hypertension. He denies any family history of cardiac issues. [facility] Medical History (Updated 11/01/24 @ 08:36 by Douglas Turner MD) Other hypertrophic cardiomyopathy Class 1 obesity with body mass index (BMI) of 32.0 to 32.9 in adult Screening for malignant neoplasm of colon declined (~09/19/24) Dizziness Annual physical exam Major depressive disorder Anxiety disorder Hyperparathyroidism Hypertension Family History (Updated 11/01/24 @ 08:33 by Douglas Turner MD) Father No problems noted. Mother No problems noted. Social History Alcohol intake: current Alcohol intake frequency: a few times a week Alcohol type: beer Review of Systems Const Denies chills, Denies fatigue, Denies fever(s), Denies frequent falls, Denies weakness, Denies weight gain and Denies weight loss ENT Denies dizziness Card Denies chest pain, Denies leg edema, Denies lightheadedness, Denies palpitations, Denies dyspnea, Denies dyspnea on exertion, Denies orthopnea and Denies other (loss of consciousness) Resp Denies cough, Denies dyspnea and Denies dyspnea on exertion GI Denies hematochezia and Denies change in stool character Musc Denies abnormal gait, Denies muscle weakness, Denies numbness, Denies radiating pain into limb and Denies tingling Neuro Denies abnormal gait, Denies dizziness, Denies frequent falls, Denies numbness, Denies tingling and Denies weakness Endo Denies fatigue and Denies palpitations Physical Exam Vital Signs: Last Vital Signs Pulse 74 11/01/24 08:15 BP 120/80 11/01/24 08:15 BMI result Body Mass Index 31.9 Const General: comfortable and no acute distress Orientation/consciousness: patient oriented x3 HEENT Other: Unremarkable Head: Yes normal to inspection Neck Neck: Yes normal visual inspection Chest Chest palpation & inspection: normal inspection of the chest Resp Auscultation: clear to auscultation bilaterally Cardio Other: Systolic outflow tract murmur more prominent with Valsalva. Palpation: normal PMI Heart sounds: S1 normal heart sound present, S2 normal heart sound present, no gallops, Murmur heart sound present systolic and no rubs GI Palpation (GI): Soft to palpation Back/Spine/Pelvis Other: unremarkable Skin General skin exam: no rashes or lesions noted Neuro General: patient oriented x3 Extrem General: Yes normal to inspection Psych Mental Status: mental status grossly normal Office Procedures EKG Details: EKG with sinus rhythm at 74/Min; leftward axis; voltage criteria for LVH; cannot exclude old septal infarct; [place]. [id number], Complete Assessment & Plan Assessment & Plan (1) Hypertrophic cardiomyopathy: Code(s): I42.2 - Other hypertrophic cardiomyopathy Category: Medical Plan: In the recent echocardiogram, hyperdynamic LVEF. There is severe left ventricular hypertrophy. Both septal as well as posterior wall thickness about 1.7 cm. Very high resting LVOT gradient of 92 mm Hg with Valsalva gradient of 171 mm Hg. This is a change compared to a prior echocardiogram from few years ago. No significant valvular findings. Pathophysiology of hypertrophic cardiomyopathy, diagnostic modalities, treatments discussed. Next step would be to get a cardiac MRI. We will get a Holter monitor for any ventricular arrhythmias. He may need diagnostic catheterization or coronary CTA as well but he is quite overwhelmed with all the information and hence we will get that done in due course. With regard to medications, start beta-blockers which should hopefully help him with some symptom relief. (2) Hypertension: Code(s): I10 - Essential (primary) hypertension Category: Medical Plan: Advised him to hold off on blood pressure medications when he is starting the beta-blockers. He will do some home readings to monitor BP. If indeed they rebound, we will readjust. Plan Discussion Notes Discussions on current diagnosis of hypertrophic cardiomyopathy, its manifestations, and possible treatment approaches were shared. The necessity for avoiding interactions by altering current medication to a new agent was explained. Comprehensive rationale involving managing symptoms and assessing myocardial thickness was given with scheduled follow-up through MRI and Holter monitoring, emphasizing the dynamic nature of his condition. Benefits, such as improvement in dizziness and pain, against medication side effects, were discussed. The risk of disease progression without appropriate intervention was underscored, with patient consent gathered for medication change and advanced diagnostic measures. Patient was informed and verbally consented to the use of an ambient scribe for clinic note documentation during this visit. Orders: Orders MR cardiac morph fnct w/wo con Today I42.2 - Other hypertrophic cardiomyopathy ECG 3 day holter monitor Today I42.2 - Other hypertrophic cardiomyopathy, R00.2 - Palpitations Medications: New metoprolol tartrate 50 mg PO BID 180 tabs 1RF 90 days I42.2 - Other hypertrophic cardiomyopathy Patient Instructions: - Start the new medication as prescribed; do not take lisinopril. - Attend and complete scheduled cardiac MRI and Holter monitor. - Keep well-hydrated, especially during work hours. - Report any worsening of symptoms or side effects from the new medication immediately. - Limit activities that may exacerbate dizziness until further advice. - Anticipate follow-up for progress evaluation and further instructions. Coding Level of Care Code New Pt Level 5 (97317) Complex EM visit Add On G2211 Diagnoses Hypertrophic cardiomyopathy I42.2 Hypertension I10 CPT Codes EKG - CPT: 27166-[id number], Complete ([id number])
== END 2024-11-01 08:50 | disposition home or self-care (01) ==
LOC: HO.HCS 08:11
PROVIDERS: PCP Physician Assistant Medical; Visit Provider Internal Medicine
DX: I42.2 Other hypertrophic cardiomyopathy (principal); I10 Essential (primary) hypertension; R94.31 Abnormal electrocardiogram [ECG] [EKG]
CPT/HCPCS: 93010; 99214; G2211

== ENCOUNTER → 2024-11-01 08:10 | Outpatient (BNVA) | payer OTHER, SELFPAY | PROVIDERS: PCP Physician Assistant Medical; Visit Provider Internal Medicine | DX: I42.2 Other hypertrophic cardiomyopathy (principal); I10 Essential (primary) hypertension; R00.2 Palpitations | CPT/HCPCS: 93005; 99212 ==

== ENCOUNTER → 2024-11-21 08:48 | Outpatient (REF) | payer OTHER, SELFPAY | LOC: HO.CARD 08:48 | PROVIDERS: Visit Provider Internal Medicine | DX: I47.20 Ventricular tachycardia, unspecified (principal) | CPT/HCPCS: 93225 ==

== ENCOUNTER 2024-12-11 12:55 | Outpatient (REF) | payer OTHER, SELFPAY ==
[2024-12-11 16:23] LABS: Anion Gap 12 (12-20); Blood Urea Nitrogen 15 mg/dL (9-16); Calcium 9.1 mg/dL (8.4-10.2); Carbon Dioxide 26 mmol/L (22-29); Chloride 109 mmol/L (96-108); Estimated Glomerular Filt Rate > 60; Glucose Random 104 mg/dL (60-115); Potassium 4.1 mmol/L (3.3-5.1); Sodium 143 mmol/L (135-145)
== END 2024-12-11 12:56 | disposition home or self-care (01) ==
LOC: HO.HMGCLDS 12:55
PROVIDERS: PCP Physician Assistant Medical
DX: I42.2 Other hypertrophic cardiomyopathy (principal)
CPT/HCPCS: 36415; 80048

== ENCOUNTER 2024-12-19 09:25 | Outpatient (AMB) | payer OTHER, SELFPAY ==
--- NOTE | 2024-12-19 09:56 | A.OFFPC_ITS ---
Vital Signs 12/19/24 10:01 Height 5 ft 5 in Weight 194 lb 6 oz BMI 32.3 BP 132/78 Blood Pressure Location Rt brachial Pulse 47 L Pulse Source Pulse Oximeter Temp 97.2 F Pulse Oximetry (%) 96 Intake Visit Reasons: follow up Intake Note: no new issues just dizzy Allergies No Known Allergies Allergy (Verified 12/19/24 09:57) Medication List - Last Reconciled 12/19/24 by Chandni Duran PA-C cholecalciferol (vitamin D3) 50 mcg PO DAILY metoprolol tartrate 50 mg PO BID 90 days rosuvastatin (Crestor) 10 mg PO DAILY Tobacco use date assessed: 12/19/24 Dental Screening Dental Screen Date: 12/19/24 Did you have a dental visit in the last 12 months?: Yes Did you have a dental problem in the last 6 months where you did not have access to dental care?: No Was dental information given to patient?: No HPI follow up HPI Details The patient is a 59-year-old male presenting with fatigue. The fatigue has been persistent, and the patient reports no improvement despite medication changes. He denies any pain or shortness of breath but notes feeling dizzy and having balance issues. The patient underwent a series of diagnostic tests, including a CAT scan of the brain and carotid ultrasound, both of which returned normal results. Blood work indicated fluctuating white blood cell counts, normal iron and ferritin levels, and elevated cholesterol and triglycerides. Vitamin D levels were slightly low, but not considered a cause for fatigue. The patient has a history of hypertrophic cardiomyopathy, with an echocardiogram showing severe left ventricular wall thickening. A hvac engineer recommended an MRI, which was recently completed, and the patient is awaiting results. The patient was switched from lisinopril to metoprolol, a beta asha, but reports no improvement in symptoms. The patient has been advised to monitor testosterone levels as a potential cause of fatigue. He is scheduled for a follow-up in three months, with instructions to report any significant changes in symptoms. [facility] Medical History (Updated 12/19/24 @ 10:38 by Chandni Duran PA-C) Preventative health care Bradycardia Vitamin D deficiency Hyperlipidemia Hypertriglyceridemia Pure hypercholesterolemia, unspecified Other hypertrophic cardiomyopathy Class 1 obesity with body mass index (BMI) of 32.0 to 32.9 in adult Screening for malignant neoplasm of colon declined (~09/19/24) Dizziness Annual physical exam Major depressive disorder Anxiety disorder Hyperparathyroidism Hypertension Family History Father No problems noted. Mother No problems noted. Social History Housing: House Alcohol intake: current Alcohol intake frequency: a few times a week Alcohol type: beer Patient Tobacco Use Status: Never used Tobacco e-Cigarette/Vaping Use: Never Used Second Hand Smoke Exposure: No service: No Current occupational status: employed Current occupational exposures/hazards: No Questionnaire PHQ-9 Over the last 2 weeks, how often have you been bothered by any of the following problems? 1. Little interest or pleasure in doing things: nearly every day 2. Feeling down, depressed, or hopeless: several days 3. Trouble falling or staying asleep, or sleeping too much: nearly every day 4. Feeling tired or having little energy: nearly every day 5. Poor appetite or overeating: several days 6. Feeling bad about yourself - or that you are a failure or have let yourself or your family down: not at all 7. Trouble concentrating on things, such as reading the newspaper or watching television: several days 8. Moving or speaking so slowly that other people could have noticed. Or the opposite - being so fidgety or restless that you have been moving around a lot more than usual: not at all 9. Thoughts that you would be better off or of hurting yourself in some way: not at all Total score: 12 Depression Screening Interpretation: Positive Depression Screening Follow-up: Declines treatment (No SI/HI/AVH) Depression Screening Done: Yes 56869 - PHQ-9 Billing: Yes Source: Developed by Drs. Corona Clifton, Radha Chance, Reggie Dubois and colleagues, with an educational rena from [employer]. Thrive Questionnaire Date Thrive assessed: 09/19/24 I am a: Patient AUDIT C Alcohol Use Questionnaire (AUDIT-C) 1. How often do you have a drink containing alcohol?: 2-3 times a week 2. How many drinks containing alcohol do you have on a typical day when you are drinking?: 5 or 6 3. How often do you have six or more drinks on one occasion?: Weekly Total Score: 8 Score Reviewed/Action Taken: No (pt declined ) LAURA-7 AMB Questionnaire LAURA-7 Date LAURA - 7 assessed: 09/19/24 Source: Developed by Drs. Corona Clifton, Radha Chance, Reggie Dubois and colleagues, with an educational rena from [employer]. Review of Systems Const Details: - General: Reports fatigue, dizziness, and balance issues. - Cardiovascular: Denies chest pain or palpitations. - Respiratory: Denies dyspnea. Physical exam (Primary Care) Vital Signs: Last Vital Signs Temp 97.2 F 12/19/24 10:01 Pulse 47 L 12/19/24 10:01 BP 132/78 12/19/24 10:01 Pulse Ox 96 12/19/24 10:01 Care Plan Goal for BP management: <140/90 at Goal BMI result Body Mass Index 32.3 Tobacco/Smoking Status: Tobacco use Status Tobacco use date assessed 12/19/24 12/19/24 10:04 Patient Tobacco Use Status Never used Tobacco 12/19/24 10:04 e-Cigarette/Vaping Use Never Used 12/19/24 10:04 PHQ-9: PHQ-9 Score PHQ-9: Total score 12 12/19/24 10:04 Depression Screening Interpretation: Positive Depression Screening Follow-up: Declines treatment (No SI/HI/AVH) Thrive Assessment: Date of Thrive Assessment Date Thrive assessed 09/19/24 12/19/24 10:04 Const Other: Appearance: Alert. Oriented X3. No acute distress. Head: Normal external exam. Normocephalic. Atraumatic. Eyes: Pupils are equal, round, and reactive to light. Extraocular movements intact. Conjunctiva and sclera normal. Eyelids normal. Ears: External auditory canal normal. Tympanic membranes normal. Throat: Pharynx normal. Uvula midline. Moist mucous membranes. Neck: Normal inspection. Neck supple. Full range of motion. Cardiovascular: Bradycardia with a rate of 49. Normal heart rhythm. Heart sounds normal. Pulses normal throughout. Respiratory: No respiratory distress. Painless inspiration. Back: Full range of motion noted. Skin: Skin warm and dry. Normal skin color. Normal skin turgor. No rashes/lesions/lacerations noted. Extremities: Extremities exhibit normal range of motion. Neuro: Oriented X 3. No motor deficit. No sensory deficit. Reflexes normal. Results Reviewed Results Reviewed: - Labs: White blood cell count fluctuating, cholesterol 207 mg/dL, LDL 141 m g/dL, triglycerides 150 mg/dL, vitamin D slightly low. - Imaging: Normal CAT scan, normal carotid ultrasound, echocardiogram showing severe left ventricular wall thickening. - Tests: Normal Holter monitor results, awaiting MRI results. Coding Level of Care Code Est Pt Level 4 (90831) Complex EM visit Add On G2211 Diagnoses Hypertrophic cardiomyopathy I42.2 Other hypertrophic cardiomyopathy I42.2 Pure hypercholesterolemia, unspecified E78.00 Hypertriglyceridemia E78.1 Hyperlipidemia E78.5 Vitamin D deficiency E55.9 Fatigue R53.83 Dizziness R42 Bradycardia R00.1 Preventative health care Z00.00 Additional Codes PHQ-9 - 25467 - PHQ-9 Billing: Yes ([id number]) Assessment & Plan Assessment & Plan (1) Hypertrophic cardiomyopathy: Code(s): I42.2 - Other hypertrophic cardiomyopathy Category: Medical Plan: The patient has hypertrophic cardiomyopathy with severe left ventricular wall thickening noted on echocardiogram. A hvac engineer recommended an MRI to further evaluate the condition, and the patient is awaiting results. The patient was switched from lisinopril to metoprolol, a beta asha, to manage symptoms, but reports no improvement. (2) Other hypertrophic cardiomyopathy: Code(s): I42.2 - Other hypertrophic cardiomyopathy Category: Medical Plan: The patient has hypertrophic cardiomyopathy with severe left ventricular wall thickening noted on echocardiogram. A hvac engineer recommended an MRI to further evaluate the condition, and the patient is awaiting results. The patient was switched from lisinopril to metoprolol, a beta asha, to manage symptoms, but reports no improvement. (3) Pure hypercholesterolemia, unspecified: Code(s): E78.00 - Pure hypercholesterolemia, unspecified Category: Medical Plan: The patient's cholesterol levels are elevated, with total cholesterol at 207 mg/dL and LDL at 141 mg/dL. Lifestyle modifications and potential medication adjustments may be considered to manage cholesterol levels. Condition is chron ic and stable continue to monitor. (4) Hypertriglyceridemia: Code(s): E78.1 - Pure hyperglyceridemia Category: Medical Plan: The patient's cholesterol levels are elevated, with total cholesterol at 207 mg/dL and LDL at 141 mg/dL. Lifestyle modifications and potential medication adjustments may be considered to manage cholesterol levels. Condition is chronic and stable continue to monitor. (5) Hyperlipidemia: Code(s): E78.5 - Hyperlipidemia, unspecified Category: Medical Plan: The patient's cholesterol levels are elevated, with total cholesterol at 207 mg/dL and LDL at 141 mg/dL. Lifestyle modifications and potential medication adjustments may be considered to manage cholesterol levels. Condition is chronic and stable continue to monitor. (6) Vitamin D deficiency: Code(s): E55.9 - Vitamin D deficiency, unspecified Category: Medical Plan: The patient has a slight vitamin D deficiency, which is not considered a primary cause of fatigue. Sun exposure and dietary adjustments may be recommended to address this deficiency. Condition is chronic and stable will continue to monitor. (7) Fatigue: Code(s): R53.83 - Other fatigue Category: Medical Plan: Patient neuro intact. No deficits noted. May be related to hypertrophic cardiomyopathy due to negative CT scan. Normal Holter monitor essentially. Awaiting MRI results. Will decrease beta-asha from b.i.d. to once daily [address] Turner sent a message to be updated. Patient instructed to go to the emergency department if symptoms worsen. Patient understands. (8) Dizziness: Code(s): R42 - Dizziness and giddiness Category: Medical Plan: Patient neuro intact. No deficits noted. May be related to hypertrophic cardiomyopathy due to negative CT scan. Normal Holter monitor essentially. Awaiting MRI results. Will decrease beta-asha from b.i.d. to once daily [address] Turner sent a message to be updated. Patient instructed to go to the emergency department if symptoms worsen. Patient understands. (9) Bradycardia: Code(s): R00.1 - Bradycardia, unspecified Category: Medical Plan: The patient exhibits bradycardia with a heart rate of 47 bpm, attributed to beta asha use. Monitoring and potential adjustment of beta asha dosage may be necessary if symptoms persist. (10) Preventative health care: Code(s): Z00.00 - Encounter for general adult medical examination without abnormal findings Category: Medical Plan: The patient will have testosterone levels monitored to rule out low testosterone as a cause of fatigue. Follow-up testing and evaluation will be conducted as needed. Plan Plan Patient was informed and verbally consented to the use of an ambient scribe for clinic note documentation during this visit. 1. Hypertrophic Cardiomyopathy The patient has hypertrophic cardiomyopathy with severe left ventricular wall thickening noted on echocardiogram. A hvac engineer recommended an MRI to further evaluate the condition, and the patient is awaiting results. The patient was switched from lisinopril to metoprolol, a beta asha, to manage symptoms, but reports no improvement. 2. Elevated Cholesterol The patient's cholesterol levels are elevated, with total cholesterol at 207 mg/dL and LDL at 141 mg/dL. Lifestyle modifications and potential medication adjustments may be considered to manage cholesterol levels. 3. Vitamin D Deficiency The patient has a slight vitamin D deficiency, which is not considered a primary cause of fatigue. Sun exposure and dietary adjustments may be recommended to address this deficiency. 4. Bradycardia The patient exhibits bradycardia with a heart rate of 47 bpm, attributed to beta asha use. Instructed patient to decrease beta-asha metoprolol from 50 mg b.i.d. to once daily. Sent a message to Dr. Turner's office updating him about this change as well and patient's symptoms. 5. Preventative Care: Monitoring Of Testosterone Levels The patient will have testosterone levels monitored to rule out low testosterone as a cause of fatigue. Follow-up testing and evaluation will be conducted as needed. I discussed with the patient the findings of hypertrophic cardiomyopathy and the need for further evaluation with an MRI, which has been completed and results are pending. We reviewed the current medication regimen, including the switch to metoprolol, and the potential need for dosage adjustment if symptoms persist. I advised monitoring testosterone levels as a potential factor in the patient's fatigue and discussed the importance of follow-up appointments to reassess symptoms and treatment efficacy. Orders: Orders Testosterone, Total Today Z00.00 - Encounter for general adult medical examination without abnormal findings Testosterone, Free/Total Today Z00.00 - Encounter for general adult medical examination without abnormal findings DHEA Sulfate Today Z00.00 - Encounter for general adult medical examination without abnormal findings Dihydrotestosterone Today Z00.00 - Encounter for general adult medical examination without abnormal findings Patient Instructions: - Continue current medications as prescribed, including metoprolol. - Monitor heart rate regularly and report if it drops below 50 bpm. - Schedule follow-up appointment in three months or sooner if symptoms worsen. - Complete blood work for testosterone levels as soon as possible.
[2024-12-19 10:01] VITALS: BP 132/78; PULSE 47; TEMP 36.2; O2SAT 96; BMI 32.3
== END 2024-12-19 10:26 | disposition home or self-care (01) ==
LOC: HO.HMCSH 09:25
PROVIDERS: PCP Physician Assistant Medical; Visit Provider Physician Assistant Medical
DX: I42.2 Other hypertrophic cardiomyopathy (principal); E78.00 Pure hypercholesterolemia, unspecified; E78.1 Pure hyperglyceridemia; E78.5 Hyperlipidemia, unspecified; E55.9 Vitamin D deficiency, unspecified; R53.83 Other fatigue; R42 Dizziness and giddiness; R00.1 Bradycardia, unspecified; Z00.00 Encounter for general adult medical examination without abnormal findings

== ENCOUNTER → 2024-12-19 09:25 | Outpatient (BNVA) | payer OTHER, SELFPAY | PROVIDERS: PCP Physician Assistant Medical; Visit Provider Physician Assistant Medical | DX: Z00.00 Encounter for general adult medical examination without abnormal findings (principal); R53.83 Other fatigue; I42.2 Other hypertrophic cardiomyopathy; E78.00 Pure hypercholesterolemia, unspecified; E78.1 Pure hyperglyceridemia; E78.5 Hyperlipidemia, unspecified; E55.9 Vitamin D deficiency, unspecified; R42 Dizziness and giddiness; R00.1 Bradycardia, unspecified | CPT/HCPCS: 96127; 99212 ==

== ENCOUNTER 2024-12-20 15:02 | Outpatient (REF) | payer OTHER, SELFPAY ==
[2024-12-26 10:13] LABS: Testosterone, Free 58.2 pg/mL (35.0-155.0)
== END 2024-12-20 15:03 | disposition home or self-care (01) ==
LOC: HO.HMGCLDS 15:02
PROVIDERS: PCP Physician Assistant Medical; Visit Provider Physician Assistant Medical
DX: Z00.00 Encounter for general adult medical examination without abnormal findings (principal)
CPT/HCPCS: 36415; 82627; 82642; 84402; 84403

== ENCOUNTER 2025-01-30 12:20 | Outpatient (AMB) | payer OTHER, SELFPAY ==
--- NOTE | 2025-01-30 12:34 | A.OFFVIS_ITS ---
Vital Signs 01/30/25 12:35 Height 5 ft 5 in Weight 196 lb 3.382 oz BMI 32.6 BP 128/78 Blood Pressure Location Lt brachial Position Sitting Pulse 70 Pulse Source Pulse Oximeter Intake Visit Reasons: f/up cardiac MRI/ holter Allergies No Known Allergies Allergy (Verified 12/19/24 09:57) Medication List - Last Reconciled 01/30/25 by Douglas Turner MD cholecalciferol (vitamin D3) 50 mcg PO DAILY metoprolol tartrate 50 mg PO DAILY rosuvastatin (Crestor) 10 mg PO DAILY HPI Comments Details: Ronen returns for follow-up. Recently seen in consultation regarding hypertrophic cardiomyopathy noted on echocardiogram. He has got no prior cardiac history. He has got chronic sensations of heart racing going back decades. He has also had chronic dizziness but more frequent recently. It can happen after physical exertion or upon standing. He also gets some random chest pains. Short of breath with activity. He believes he has had these symptoms for a long time but more so the last few months. On medication for hypertension. He denies any family history of cardiac issues. Since last visit, he has undergone a cardiac MRI. [facility] Medical History (Updated 12/19/24 @ 10:38 by Chandni Duran PA-C) Preventative health care Bradycardia Vitamin D deficiency Hyperlipidemia Hypertriglyceridemia Pure hypercholesterolemia, unspecified Other hypertrophic cardiomyopathy Class 1 obesity with body mass index (BMI) of 32.0 to 32.9 in adult Screening for malignant neoplasm of colon declined (~09/19/24) Dizziness Annual physical exam Major depressive disorder Anxiety disorder Hyperparathyroidism Hypertension Family History Father No problems noted. Mother No problems noted. Social History Housing: House Alcohol intake: current Alcohol intake frequency: a few times a week Alcohol type: beer Patient Tobacco Use Status: Never used Tobacco e-Cigarette/Vaping Use: Never Used Second Hand Smoke Exposure: No service: No Current occupational status: employed Current occupational exposures/hazards: No Review of Systems Const Denies weakness ENT Denies dizziness Card Denies chest pain, Denies chest pain with activity, Denies syncope, Denies rapid heart rate, Denies pedal edema, Denies edema, Denies leg edema, Denies lightheadedness, Denies palpitations, Denies dyspnea, Denies dyspnea on exertion and Denies orthopnea Resp Denies cough, Denies dyspnea and Denies dyspnea on exertion GI Denies hematochezia and Denies change in stool character Musc Denies abnormal gait, Denies muscle cramps, Denies muscle weakness, Denies numbness, Denies radiating pain into limb and Denies tingling Neuro Denies abnormal gait, Denies dizziness, Denies syncope, Denies numbness, Denies tingling and Denies weakness Endo Denies palpitations Physical Exam Vital Signs: Last Vital Signs Pulse 70 01/30/25 12:35 BP 128/78 01/30/25 12:35 BMI result Body Mass Index 32.6 Const General: comfortable and no acute distress Orientation/consciousness: patient oriented x3 HEENT Other: Unremarkable Head: Yes normal to inspection Neck Neck: Yes normal visual inspection Chest Chest palpation & inspection: normal inspection of the chest Resp Auscultation: clear to auscultation bilaterally Cardio Palpation: normal PMI Heart sounds: S1 normal heart sound present, S2 normal heart sound present, no gallops, Murmur heart sound present systolic II/ and no rubs GI Palpation (GI): Soft to palpation Back/Spine/Pelvis Other: unremarkable Skin General skin exam: no rashes or lesions noted Neuro General: patient oriented x3 Extrem General: Yes normal to inspection Psych Mental Status: mental status grossly normal Assessment & Plan Assessment & Plan (1) Hypertrophic cardiomyopathy: Code(s): I42.2 - Other hypertrophic cardiomyopathy Category: Medical Plan: In the recent echocardiogram, hyperdynamic LVEF. There is severe left ventricular hypertrophy. Both septal as well as posterior wall thickness about 1.7 cm. Very high resting LVOT gradient of 92 mm Hg with Valsalva gradient of 171 mm Hg. This is a change compared to a prior echocardiogram from few years ago. No significant valvular findings. In the cardiac MRI, severe hypertrophy of the basal to mid septal segments with increased myocardial mass. Per MRI, maximum thickness is seen in the basal anteroseptal wall at 2.5 cm. No evidence of TATIANA. Low burden of fibrosis. Holter monitor shows underlying sinus rhythm without any significant arrhythmias. Overall, hypertrophic cardiomyopathy which might be the etiology for a lot of his symptoms. We discussed about referral to a specialist clinic in [place] and he is reluctant but willing. He will need probable initiation of cardiac myosin inhibitors vs consideration of myectomy and consideration of genetic testing. For completion, we will also get a coronary CTA. He was put on beta-blockers but he states he felt worse and hence the dose has been cut back. He can continue the current dose of metoprolol 50 mg once a day for the time being. (2) Hypertension: Code(s): I10 - Essential (primary) hypertension Category: Medical Plan: Stable. Plan Discussion Notes During the consultation, I explained to the patient that he has hypertrophic cardiomyopathy, a condition where the heart muscle thickens, affecting its ability to fill with blood properly. I discussed the potential genetic component of this condition and the importance of further testing to determine any familial implications. I recommended a referral to a specialist at the [facility] for comprehensive management and discussed the possibility of new medications that could help reduce the muscle thickness. I also advised the patient to undergo a coronary CT scan to check for blockages, explaining that this test is different from the MRI and echocardiogram he has already had. We discussed the importance of lifestyle modifications, particularly addressing physical deconditioning, which may contribute to his symptoms. I emphasized the need for medication adherence and monitoring of symptoms, advising him to report any significant changes. Patient was informed and verbally consented to the use of an ambient scribe for clinic note documentation during this visit. Orders: Orders CT Cardiac Coronary Angio Today I25.10 - Atherosclerotic heart disease of [place] coronary artery without angina pectoris Basic Metabolic Panel Today I42.2 - Other hypertrophic cardiomyopathy Referrals Cardiology Referral I42.2 - Other hypertrophic cardiomyopathy Patient Instructions: - Follow up with the specialist at the [facility] as scheduled. - Undergo the coronary CT scan as advised to check for blockages. - Continue taking Metoprolol. - Report any significant changes in symptoms to your healthcare provider. Coding Level of Care Code Est Pt Level 4 (78490) Complex EM visit Add On G2211 Diagnoses Hypertrophic cardiomyopathy I42.2 Hypertension I10
[2025-01-30 12:35] VITALS: BP 128/78; PULSE 70; BMI 32.6
== END 2025-01-30 13:04 | disposition home or self-care (01) ==
PROVIDERS: PCP Physician Assistant Medical; Visit Provider Internal Medicine
DX: I42.2 Other hypertrophic cardiomyopathy (principal); I10 Essential (primary) hypertension
CPT/HCPCS: 99214

== ENCOUNTER → 2025-01-30 12:20 | Outpatient (BNVA) | payer OTHER, SELFPAY | PROVIDERS: PCP Physician Assistant Medical; Visit Provider Internal Medicine | DX: I42.2 Other hypertrophic cardiomyopathy (principal); I25.10 Atherosclerotic heart disease of native coronary artery without angina pectoris; I10 Essential (primary) hypertension | CPT/HCPCS: 99212 ==

== ENCOUNTER 2025-03-22 13:12 | Outpatient (AMB) | payer OTHER, SELFPAY ==
[2025-03-22 13:13] VITALS: BP 140/96; PULSE 52; TEMP 36.7; O2SAT 98; BMI 33.0
--- NOTE | 2025-03-22 13:13 | MHC.PC.OV ---
Vital Signs 03/22/25 13:13 Height 5 ft 5 in Weight 198 lb 2 oz BMI 33.0 BP 140/96 H Blood Pressure Location Rt brachial Position Sitting Pulse 52 Pulse Source Pulse Oximeter Temp 98.1 F Temp Source Temporal Artery Scan Pulse Oximetry (%) 98 Oxygen Delivery Method Room Air Intake Visit Reasons: 3 month follow up Intake Note: no new issues just dizzy Accompanied by: Self / Same As Patient Allergies No Known Allergies Allergy (Verified 03/22/25 15:15) Medication List - Last Reconciled 03/22/25 by Chandni Duran PA-C cholecalciferol (vitamin D3) 50 mcg PO DAILY metoprolol tartrate 50 mg PO DAILY rosuvastatin (Crestor) 10 mg PO DAILY Tobacco use date assessed: 03/22/25 Dental Screening Dental Screen Date: 03/22/25 Did you have a dental visit in the last 12 months?: Yes Did you have a dental problem in the last 6 months where you did not have access to dental care?: No Was dental information given to patient?: Patient has dentist HPI 3 month follow up HPI Details The patient is a 59-year-old male presenting with worsening symptoms related to hypertrophic cardiomyopathy. He was diagnosed with hypertrophic cardiomyopathy by a tariff publishing agent, Dr. Turner, following an ultrasound ordered due to a detected heart murmur. The patient reports experiencing constant dizziness, which is more noticeable when sitting, and has been present for his entire life but has worsened over the past two months. The patient also reports episodes of confusion, which have become more frequent and severe, affecting his ability to perform tasks at work and during a recent certification exam. He has a history of severe left ventricular hypertrophy and has been referred to a specialist in [place] for further evaluation. The patient is currently on metoprolol 50 mg daily and Crestor for cholesterol management, as recommended by his tariff publishing agent. He has been advised to continue these medications and has an upcoming appointment for a CT cardiac coronary angiogram and a follow-up with a tariff publishing agent in [place]. Additionally, the patient reports experiencing muscle spasms and intermittent hip pain, which have not been previously evaluated. There is no history of falls, changes in vision, or slurred speech, but he occasionally struggles with reading and writing. The patient has a family history of heart disease. Social History - Employment: The patient is employed and reports that his symptoms affect his work performance. - Functional status: The patient reports difficulty with tasks requiring concentration, such as reading and writing. [facility] Medical History (Updated 03/22/25 @ 15:23 by Chandni Duran PA-C) Muscle spasm Confusion Preventative health care Bradycardia Vitamin D deficiency Hyperlipidemia Hypertriglyceridemia Pure hypercholesterolemia, unspecified Other hypertrophic cardiomyopathy Class 1 obesity with body mass index (BMI) of 32.0 to 32.9 in adult Screening for malignant neoplasm of colon declined (~09/19/24) Dizziness Annual physical exam Major depressive disorder Anxiety disorder Hyperparathyroidism Hypertension Family History Father No problems noted. Mother No problems noted. Social History Housing: House Alcohol intake: current Alcohol intake frequency: a few times a week Alcohol type: beer Patient Tobacco Use Status: Former Tobacco user e-Cigarette/Vaping Use: Never Used Second Hand Smoke Exposure: No service: No Current occupational status: employed Current occupational exposures/hazards: No Cognitive needs: No Hearing needs: No Vision needs: No Questionnaire PHQ-9 Over the last 2 weeks, how often have you been bothered by any of the following problems? 1. Little interest or pleasure in doing things: not at all 2. Feeling down, depressed, or hopeless: not at all 3. Trouble falling or staying asleep, or sleeping too much: not at all 4. Feeling tired or having little energy: not at all 5. Poor appetite or overeating: not at all 6. Feeling bad about yourself - or that you are a failure or have let yourself or your family down: not at all 7. Trouble concentrating on things, such as reading the newspaper or watching television: not at all 8. Moving or speaking so slowly that other people could have noticed. Or the opposite - being so fidgety or restless that you have been moving around a lot more than usual: not at all 9. Thoughts that you would be better off or of hurting yourself in some way: not at all Total score: 0 Depression Screening Interpretation: Negative Depression Screening Done: Yes 40506 - PHQ-9 Billing: Yes Source: Developed by Drs. Corona Clifton, Reggie Ayoubke and colleagues, with an educational rena from [email or web address]. Thrive Questionnaire Date Thrive assessed: 03/22/25 I am a: Patient What is your living situation today?: I have a steady place to live Within the past 12 months, did the food you bought not last and you didn't have the money to get more?: Never true Within the past 12 months, did you worry whether your food would run out before you got money to buy more?: Never true Do you have trouble paying for medicines?: No Do you have trouble getting transportation to medical appointments?: No Do you have trouble paying your heating and electricity bill?: No Do you have trouble taking care of your child, family member or friend?: No Do you have trouble with day-to-day activities such as bathing, preparing meals, shopping, managing finances, etc.?: No Are you currently unemployed and looking for a job?: No Are you interested in more education?: No Please select the resources that you would like help with: None THRIVE Score: 0 AUDIT C Alcohol Use Questionnaire (AUDIT-C) 1. How often do you have a drink containing alcohol?: 2-3 times a week 2. How many drinks containing alcohol do you have on a typical day when you are drinking?: 5 or 6 3. How often do you have six or more drinks on one occasion?: Weekly Total Score: 8 Score Reviewed/Action Taken: No (pt declined ) LAURA-7 AMB Questionnaire LAURA-7 Date LAURA - 7 assessed: 03/22/25 Feeling nervous, anxious, or on edge: 0 = Not at all Not being able to stop or control worryin = Not at all Worrying too much about different things: 0 = Not at all Trouble relaxin = Not at all Being so restless that it is hard to sit still: 0 = Not at all Becoming easily annoyed or irritable: 0 = Not at all Feeling afraid as if something awful might happen: 0 = Not at all Total LAURA-7 score (0-4 normal; 5-9 mild; 10-14 moderate; 15-21 severe): 0 Source: Developed by Drs. Corona Clifton, Reggie Ayoub and colleagues, with an educational rena from [email or web address]. LAURA-7 Assessment Billing LAURA-7 Assessment Tool: LAURA-7 Assessment 72161 Review of Systems Const Details: - Cardiovascular: Reports dizziness, more noticeable when sitting. Denies chest pain or syncope. - Neurological: Reports episodes of confusion and difficulty with reading and writing. Denies slurred speech or changes in vision. - Musculoskeletal: Reports intermittent muscle spasms and hip pain. Denies joint swelling or redness. All systems reviewed & are unremarkable except as noted in HPI and below Physical exam (Primary Care) Vital Signs: Last Vital Signs Temp 98.1 F 03/22/25 13:13 Pulse 52 03/22/25 13:13 BP 140/96 H 03/22/25 13:13 Pulse Ox 98 03/22/25 13:13 Oxygen Delivery Method Room Air 03/22/25 13:13 Care Plan Goal for BP management: <140/90 patient will continue metoprolol extended release 50 mg daily BMI result Body Mass Index 33.0 BMI Assessment/Plan discussion: High BMI High, discussed plan: lifestyle, weight reduction, dietary, physical activity, alcohol moderation and other Tobacco/Smoking Status: Tobacco use Status Tobacco use date assessed 03/22/25 03/22/25 13:22 Patient Tobacco Use Status Former Tobacco user 03/22/25 13:22 e-Cigarette/Vaping Use Never Used 03/22/25 13:22 PHQ-9: PHQ-9 Score PHQ-9: Total score 0 03/22/25 13:47 Depression Screening Interpretation: Negative Thrive Assessment: Date of Thrive Assessment Date Thrive assessed 03/22/25 03/22/25 13:22 Const Other: Appearance: Alert. Oriented X3. No acute distress. Head: Normal external exam. Normocephalic. Atraumatic. Eyes: Pupils are equal, round, and reactive to light. Extraocular movements intact. Conjunctiva and sclera normal. Eyelids normal. Throat: Pharynx normal. Uvula midline. Moist mucous membranes. Neck: Normal inspection. Neck supple. Full range of motion. Cardiovascular: Normal heart rate and rhythm. Heart sound normal. Murmur noted. Pulses normal throughout. Respiratory: No respiratory distress. Painless inspiration. Breath sounds normal. No wheezes/rales/rhonchi noted.No accessory muscle usage noted or decreased air movement noted. Abdomen: Soft and nontender. No distention noted. No organomegaly noted. Back: No costovertebral angle tenderness. Full range of motion noted. Skin: Skin warm and dry. Normal skin color. Normal skin turgor. No rashes/lesions/lacerations noted. Extremities: No lower extremity edema. Extremities exhibit normal range of motion. Extremities nontender. Neuro: Oriented X 3. No motor deficit. No sensory deficit. Reflexes normal. Negative pronator drift. Negative Romberg. Normal etazgi-ib-iklk test. Normal tandem walking. Normal steady gait. Normal voice. Normal mentation. Normal speech. No drooling is noted. No facial weakness is noted. Normal neuro exam no focal deficits are noted. Office Procedures Flu Questionnaire Does the patient have a severe egg allergy?: No Does the patient have severe life threatening allergies?: No Does the patient have a fever or illness today?: No Has the patient ever had Guillain-[place] Syndrome?: No Has the patient ever had any past reaction to a flu shot?: No Immunizations Fluarix [id number] (PF) 45 mcg (15 mcg x 3)/0.5 mL IM syringe Performing Provider: Chandni Duran PA-C [facility] Documented (not given) by: Neida Darby CMA on 03/22/25 13:47 Reason Not Given: Patient Refused Results Reviewed Results Reviewed: - Imaging: Previous CT scan of the brain was negative. - Imaging: MRI of the heart showed severe left ventricular hypertrophy. - Imaging: Echocardiogram confirmed hypertrophic cardiomyopathy. Coding Level of Care Code Est Pt Level 4 (58458) Complex EM visit Add On G2211 Diagnoses Hypertrophic cardiomyopathy I42.2 Dizziness R42 Confusion R41.0 Muscle spasm M62.838 Additional Codes PHQ-9 - 38238 - PHQ-9 Billing: Yes ([id number]) LAURA-7 Assessment Billing - LAURA-7 Assessment Tool: LAURA-7 Assessment 94434 ([id number]) Time Spent (min) 60 Assessment & Plan Assessment & Plan (1) Hypertrophic cardiomyopathy: Code(s): I42.2 - Other hypertrophic cardiomyopathy Category: Medical Plan: The patient will continue on metoprolol 50 mg daily and Crestor as recommended by the tariff publishing agent. A CT cardiac coronary angiogram is scheduled to assess the coronary vessels, and a follow-up with a specialist in [place] is planned for further evaluation. (2) Dizziness: Code(s): R42 - Dizziness and giddiness Category: Medical Plan: The patient reports persistent dizziness, which will be further evaluated with a neurology referral and a brain MRI to rule out neurological causes. (3) Confusion: Code(s): R41.0 - Disorientation, unspecified Category: Medical Plan: Episodes of confusion will be addressed with a neurology referral and a brain MRI to investigate potential neurological causes. (4) Muscle spasm: Code(s): M62.838 - Other muscle spasm Category: Medical Plan: The patient reports intermittent muscle spasms, which will be monitored, and further evaluation will be considered if symptoms persist. Plan Plan Patient was informed and verbally consented to the use of an ambient scribe for clinic note documentation during this visit. 1. Hypertrophic Cardiomyopathy The patient will continue on metoprolol 50 mg daily and Crestor as recommended by the tariff publishing agent. A CT cardiac coronary angiogram is scheduled to assess the coronary vessels, and a follow-up with a specialist in [place] is planned for further evaluation. 2. Dizziness The patient reports persistent dizziness, which will be further evaluated with a neurology referral and a brain MRI to rule out neurological causes. 3. Confusion Episodes of confusion will be addressed with a neurology referral and a brain MRI to investigate potential neurological causes. 4. Muscle Spasms The patient reports intermittent muscle spasms, which will be monitored, and further evaluation will be considered if symptoms persist. 5. Potential Lyme Disease Given the symptoms of dizziness, confusion, and joint pain, Lyme disease screening is considered, and the patient will decide if testing is desired. During the visit, I discussed with the patient the importance of continuing his current medications, including metoprolol and Crestor, as advised by his tariff publishing agent. We reviewed the upcoming CT cardiac coronary angiogram and the follow-up appointment with the specialist in [place] to further evaluate his hypertrophic cardiomyopathy. I recommended a neurology referral and a brain MRI to investigate the causes of his dizziness and confusion, emphasizing the need to rule out neurological issues. We also discussed the possibility of Lyme disease screening due to his symptoms, and I advised him to consider testing if he felt it was necessary. Orders: Orders Influenza [id number] Immunization Today Z23 - Encounter for immunization MR head/brain wo con Today R41.0 - Disorientation, unspecified, R42 - Dizziness and giddiness, R53.83 - Other fatigue Referrals Neurology Referral R41.0 - Disorientation, unspecified, R42 - Dizziness and giddiness Medications: New metoprolol tartrate 50 mg PO DAILY 90 tabs 3RF I42.2 - Other hypertrophic cardiomyopathy Refilled cholecalciferol (vitamin D3) 50 mcg PO DAILY 90 caps 3RF rosuvastatin (Crestor) 10 mg PO DAILY 90 tabs 3RF Patient Instructions: - Continue taking metoprolol 50 mg daily and Crestor as prescribed. - Attend the scheduled CT cardiac coronary angiogram and follow-up appointment with the specialist in [place]. - Follow up with neurology and complete the brain MRI as advised. - Consider Lyme disease screening if symptoms persist or worsen. - Contact the clinic if experiencing new or worsening symptoms, such as visual changes or difficulty speaking.
== END 2025-03-22 13:50 | disposition home or self-care (01) ==
LOC: HO.HMCSH 13:12
PROVIDERS: PCP Physician Assistant Medical; Visit Provider Physician Assistant Medical
DX: I42.2 Other hypertrophic cardiomyopathy (principal); R42 Dizziness and giddiness; R41.0 Disorientation, unspecified; M62.838 Other muscle spasm; Z23 Encounter for immunization

== ENCOUNTER → 2025-03-22 13:12 | Outpatient (BNVA) | payer OTHER, SELFPAY | PROVIDERS: PCP Physician Assistant Medical; Visit Provider Physician Assistant Medical | DX: I42.2 Other hypertrophic cardiomyopathy (principal); R41.0 Disorientation, unspecified; R42 Dizziness and giddiness; M62.838 Other muscle spasm; R53.83 Other fatigue; Z28.21 Immunization not carried out because of patient refusal; Z79.899 Other long term (current) drug therapy | CPT/HCPCS: 90471; 96127; 99212 ==

== ENCOUNTER 2025-04-17 09:15 | Outpatient (REF) | payer OTHER, SELFPAY ==
[2025-04-17 10:21] LABS: Anion Gap 10 (12-20); Blood Urea Nitrogen 24 mg/dL (9-16); Calcium 9.0 mg/dL (8.4-10.2); Carbon Dioxide 27 mmol/L (22-29); Chloride 108 mmol/L (96-108); Estimated Glomerular Filt Rate > 60; Potassium 3.9 mmol/L (3.3-5.1); Sodium 141 mmol/L (135-145)
== END 2025-04-17 09:16 | disposition home or self-care (01) ==
LOC: HO.HMGCLDS 09:15
PROVIDERS: PCP Physician Assistant Medical; Visit Provider Internal Medicine
DX: I42.2 Other hypertrophic cardiomyopathy (principal)
CPT/HCPCS: 36415; 80048